=== PATIENT | female | born 1980 | race Caucasian/White ===

== ENCOUNTER 2017-08-27 00:25 | Inpatient (IN) | payer OTHER ==
[~2017-08-27] VITALS: Ht 167.6 cm; Wt 93.6 kg
[~2017-08-27 00:25] MED LIST: PRENTAB26 PO
[2017-08-30] MEDS ORDERED: LACTATED RINGER'S 1000ML 1,000 ML IV SCH (07:36)
[2017-08-30] MEDS ORDERED: LACTATED RINGER'S 1000ML 1,000 ML IV PRN (07:36)
[2017-08-30 07:55] LABS: HEMATOCRIT 33.1 % (37-47); MEAN CELL VOLUME 93.2 fL (80-100); MEAN CORPUSCULAR HEMOGLOBIN 32.7 pg (25-34); MEAN PLATELET VOLUME 9.9 fL (7.4-10.4); PLATELET COUNT 128 K/uL (130-400); RED BLOOD COUNT 3.55 M/uL (4.2-5.4)
[2017-08-30] MEDS ORDERED: PENICILLIN G POTASSIUM IV 6 MU in DEXTROSE 5% 250ML 250 ML IV SCH (08:00)
[2017-08-30] MEDS ORDERED: MISOPROSTOL 25 MCG TAB PV ONE (08:00)
[2017-08-30 08:53] VITALS: Ht 167.6 cm; Wt 93.6 kg
[2017-08-30] MEDS ORDERED: LACTATED RINGER'S 1000ML 500 ML IV PRN ×2 (12:48→18:01)
[2017-08-30] MEDS: PENICILLIN G POTASSIUM IV 3 MU in DEXTROSE 5% 100ML 100 ML IV PRN ×2 (12:50→18:03)
[2017-08-30] MEDS ORDERED: OXYTOCIN 30 UNITS/500ML NSS IV PRN ×2 (13:00→21:15)
[2017-08-30] MEDS ORDERED: FENTANYL 2MCG/ML ROPIV 1.25MG/ML 100ML BAG EPI ONE (17:18)
[2017-08-30] MEDS ORDERED: BUPIVACAINE 0.25% 30 ML VIAL ONE (17:18)
[2017-08-30] MEDS ORDERED: EpHEDrine SULFATE INJ 50 MG/ML AMP ONE (17:18)
[2017-08-30] MEDS ORDERED: FENTANYL CITRATE INJ 50 MCG/1 ML 2 ML VIAL ONE (17:19)
[2017-08-30] MEDS ORDERED: NALOXONE HCL INJ 0.4 MG/1 ML VIAL/CARP IV PRN (18:15)
[2017-08-30] MEDS ORDERED: EpHEDrine SULFATE INJ 50 MG/ML AMP IV PRN (18:15)
[2017-08-30] MEDS ORDERED: FENTANYL 2MCG/ML ROPIV 1.25MG/ML 100ML BAG EPI PRN (18:15)
[2017-08-30] MEDS ORDERED: METHYLERGONOVINE MALEATE 0.2 MG/ML AMP ONE (21:01)
[2017-08-30] MEDS ORDERED: LANOLIN OINT EXT PRN ×2 (21:15)
[2017-08-30] MEDS ORDERED: DIPHTHERIA/TETANUS/PERTUSSIS 0.5 ML SYR/VIAL IM. ONE (21:15)
[2017-08-30] MEDS ORDERED: METHYLERGONOVINE MALEATE 0.2 MG/ML AMP IM ONE (21:15)
[2017-08-30] MEDS ORDERED: ACETAMINOPHEN/CODEINE 300/30MG TAB PO PRN ×2 (21:15)
[2017-08-30] MEDS ORDERED: HYDROCORTISONE ACETATE 25 MG SUPP PR PRN (21:15)
[2017-08-30] MEDS ORDERED: SUPERCREAM 0.870 % 15GM JAR EXT PRN (21:15)
[2017-08-30] MEDS ORDERED: ACETAMINOPHEN 325 MG TAB PO PRN (21:15)
[2017-08-30] MEDS ORDERED: BENZOCAINE 20% AER SPR 82.5 GM CAN EXT PRN (21:15)
[2017-08-30] MEDS ORDERED: OXYCODONE/ACETAMINOPHEN 5-325 TAB PO PRN (21:15)
--- NOTE | 2017-08-30 22:42 | DELIVERY SUMMARY ---
DATE OF OPERATION: 08/30/2017 TIME OF DELIVERY: 20:56 DELIVERY OF PLACENTA: 20:59 DELIVERY NOTE: The patient is a 36-year-old 3, para 2 at 40 weeks and 3 days gestation who was admitted to labor and delivery on the morning of August 30, 2017, and was scheduled for induction of labor secondary to postdates. On arrival, she was found to be 1 cm, 50% effaced and -3 station. She was given 1 dose of Cytotec 25 mcg intravaginally. She progressed and was started on Pitocin per protocol. She received an epidural for anesthesia. Artificial rupture of membranes was performed at 17:11 with clear amniotic fluid noted. She reached complete dilation at 20:48 with urge to push. The patient pushed to delivery at 20:56. She delivered a viable male in the right occiput anterior position to an intact perineum. The baby was delivered and placed on the patient's abdomen. Cord was clamped x2 and cut. Apgars were 8 at 1 minute and 8 at 5 minutes. Please see nursing notes for further baby assessment. Cord blood was then obtained. Intact placenta with 3-vessel cord was delivered at 20:59. Oxytocin infusion was then begun. The lower uterine segment and vagina were cleared of any blood clots and debris. Exploration of the perineum noted a first-degree vaginal laceration which was repaired with 3-0 Vicryl suture in continuous running fashion. Excellent hemostasis was noted. No other lacerations were seen. All sponge, instrument and needle counts were found to be correct x2. Estimated blood loss was 300 mL. Both patient and baby tolerated the delivery well and were in recovery with stable vital signs. I attest to the content of the Intraoperative Record and any orders documented therein. Any exception s are noted below.
--- NOTE | 2017-08-30 23:03 | Anesthesia Procedure Note ---
Anesthesia Epidural Removal Nt Date & Time Aug 30, 2017 at 23:03 Notes Mental Status: alert / awake / arousable, participated in evaluation Nausea / Vomiting: adequately controlled Pain: adequately controlled Airway Patency, RR, SpO2: stable & adequate BP & HR: stable & adequate Hydration State: stable & adequate Neuraxial Anesthesia: was administered Anesthetic Complications: no major complications apparent, pt satisfied with anesthetic care Epidural: removed without complications, with tip intact
[2017-08-31] MEDS: IBUPROFEN 600 MG TAB PO PRN ×5 (03:59→19:52)
[2017-08-31 06:10] VITALS: BP 134/78
[2017-08-31 06:38] LABS: HEMATOCRIT 34.3 % (37-47)
[2017-08-31] MEDS: DOCUSATE SODIUM 100 MG CAP PO SCH ×2 (08:09→19:52)
[2017-08-31] MEDS: FERROUS SULFATE 325 MG TAB PO SCH (08:09)
[2017-08-31] MEDS: PRENATAL VITAMIN TAB PO SCH (08:09)
--- NOTE | 2017-08-31 08:14 | OB/GYN Progress Note ---
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 Subjective conversation w/ patient, physical exam Ambulation: ambulating normally Voiding: no incontinence Passing Gas: Yes Diet Tolerance: Regular Diet Lochia: Small Feeding Type: Breast Feeding Objective Vital Signs Date Time Temp Pulse Resp B/P (MAP) Pulse Ox O2 Delivery O2 Flow Rate FiO2 08/31/17 06:10 134/78 08/31/17 00:30 Room Air Physical Exam General Appearance: WELL-APPEARING, NO APPARENT DISTRESS Abdomen: non tender, soft, no organomegaly Fundus: Firm Extremities: non-tender, normal inspection, no pedal edema, no calf tenderness Laboratory Results Last 24 Hours Test 08/31/17 06:18 Hemoglobin 12.0 g/dL Hematocrit 34.3 % Assessment and Plan Post- Day Number: 1 Continue Routine Care: tent d/c in AM
[2017-08-31 08:42] VITALS: O2SAT 98
[2017-08-31 08:46] VITALS: BP 129/83; PULSE 67; TEMP 36.6
[2017-08-31 12:17] VITALS: BP 139/75; PULSE 69; TEMP 36.8
[2017-08-31 15:00] VITALS: BP 118/73; PULSE 73; TEMP 36.6
[2017-08-31 19:30] VITALS: BP 117/78; PULSE 60; TEMP 36.6
[2017-08-31] MEDS ORDERED: BISACODYL 5 MG TABEC PO SCH (20:00)
[2017-09-01 00:01] VITALS: BP 128/83; PULSE 58; TEMP 36.4
[2017-09-01 06:39] LABS: HEMATOCRIT 35.4 % (37-47); MEAN CELL VOLUME 94.1 fL (80-100); MEAN CORPUSCULAR HEMOGLOBIN 32.2 pg (25-34); MEAN CORPUSCULAR HGB CONC 34.2 g/dl (32-36); MEAN PLATELET VOLUME 10.2 fL (7.4-10.4); PLATELET COUNT 171 K/uL (130-400); RED BLOOD COUNT 3.76 M/uL (4.2-5.4); WHITE BLOOD COUNT 9.14 K/uL (4.8-10.8)
[2017-09-01] MEDS ORDERED: BISACODYL 10 MG SUPP PR PRN (07:00)
[2017-09-01 08:07] VITALS: BP 129/82; PULSE 73; TEMP 36.4
[2017-09-01 08:11] VITALS: O2SAT 98
[2017-09-01] MEDS: PRENATAL VITAMIN TAB PO SCH (08:21)
[2017-09-01] MEDS: FERROUS SULFATE 325 MG TAB PO SCH (08:21)
[2017-09-01] MEDS: IBUPROFEN 600 MG TAB PO PRN ×2 (08:21→12:06)
[2017-09-01] MEDS: DOCUSATE SODIUM 100 MG CAP PO SCH (08:23)
[2017-09-01] MEDS ORDERED: MTR600X PO (10:13)
--- NOTE | 2017-09-01 10:14 | Discharge Instructions ---
Discharge Instructions Date of Service Sep 01, 2017. Admission Reason for Admission: Induction Discharge Discharge Diagnosis / Problem: Vaginal Delivery Discharge Goals Goal(s): Routine recovery after delivery Medications Continue Dispensed Medications: supercream, dermaplast, tucks, lansinoh Activity Recommendations Activity Limitations: per Instructions/Follow-up section . Instructions / Follow-Up Instructions / Follow-Up ACTIVITY RECOMMENDATIONS: * Gradual return to full activity over the next 2-3 weeks. * No lifting - nothing heavier than baby over the next 2-3 weeks. * Do not engage in vigorous exercise, sexual activity or sports until cleared by your physician. * Do not drive or operate any motorized equipment until cleared by your physician. * You may shower/bathe daily. BREAST CARE: If you are not breast feeding: * Wear a supportive bra 24 hours a day for one to two weeks. * Avoid stimulating your breasts and nipples as much as possible during the first few weeks after delivery. * When taking a shower, have the warm water hit your back, not breasts. * When your breasts feel full, apply ice packs. Usually three to four times a day helps ease the discomfort. * Take a mild pain medication (Tylenol/Motrin) when you are uncomfortable. If breast feeding: * Use breast milk to lubricate nipples. Lansinoh cream may be used for sore nipples. You do not need to remove cream prior to breast feeding. If using a different brand of cream, check the label for directions regarding removal of cream prior to nursing. * Wear a supportive bra. * If having problems with breasts or breast feeding, call a legal consultant or your health care provider. EPISIOTOMY CARE: After delivery, if you have an episiotomy (stitches), the following steps will ease discomfort and aid healing. * For the first 24 hours after delivery, place ice packs next to your episiotomy to help reduce swelling. * After the first 24 hour-period, sitz baths, either portable or in the tub, are suggested. A shower with a shower arm sprayed over the episiotomy may be comforting. * Dennise care should be done after each voiding and bowel movement. Squirt warm water from a plastic bottle over the perineum (region of the body between the anus and urinary opening) and pat dry. * Use Dermoplast to ease discomfort. Shake container. [place] directly over the episiotomy. * Place a Tucks on a clean sanitary pad next to your episiotomy. OVER THE COUNTER MEDICATION: * For discomfort or pain, you may use Acetaminophen (Tylenol), Ibuprofen (Advil ), or Naproxen (Aleve) following the package directions. * For constipation you may use Colace following the package directions. SPECIAL CARE INSTRUCTIONS: When you are discharged from the hospital, it is important for you to follow the instructions listed below: * During the first week at home, you should be able to care for yourself and your baby. In addition, the usual light household activities are encouraged. * Limit your activities to the way you feel. Do not try to clean the house or move furniture. Be sensible. * If you actively engage in sports and have done so up until the time of your delivery, you may resume these activities as soon as you feel able. This may take up to one month or even longer. Use good judgment. * Continue to take your vitamins for at least six weeks after the of your baby. * Your diet need not be limited unless you were on a special diet before your delivery. Breast-feeding mothers need around 2500 calories per day and at least 64-80 ounces of fluid per day (8 to 10 glasses). * You should eat foods from the four major food groups. Crash diets or fad diets are to be avoided. Eating lean meats, fresh fruits and vegetables, low-fat dairy products, high fiber foods and a regular exercise program, will help you get back to your pre- weight without putting your health at risk. * Constipation is sometimes a problem after delivery. Take a mild laxative as needed. If breast feeding, Milk of Magnesia is acceptable to use. You may use a suppository or Fleets enema if no episiotomy. * A daily shower or tub bath is suggested. Be sure to thoroughly and gently dry the perineum. * A bloody vaginal discharge will usually continue until around four weeks post . A small amount of bleeding may continue for as long as six weeks. Vaginal discharge changes from the bright red bleeding after delivery to pink then brownish and finally yellowish-pink before becoming white and disappearing. * Bleeding may increase with activity. Your first period may come in 4-8 weeks. If you are breast feeding, your period may be delayed even longer. * [place] (sex) can begin whenever both you and your partner feel comfortable and do not have any form of genital infection. It is recommended that you wait until after your return appointment and discuss with your physician. If you have questions, please talk to your health care practitioner. A condom should be used to prevent infection and . * Foreplay, gentle intercourse and lubrication is very important the first several times to prevent pain. A water-based lubricant such as K-Y jelly or Astroglide may be used. * Tampons may be used six weeks after delivery. * Douching should be avoided for 6 weeks after delivery. * If you have RH negative blood and your baby is RH positive, you will receive RHOGAM by injection prior to discharge. The nurse will give you a card to keep with you that has the date and place that you received RHOGAM after delivery. * During your care, you had a Rubella screen done to check for the presence of rubella antibodies in your blood. If your test was negative, you will receive a Rubella vaccine prior to discharge. This vaccine may cause a fever, soreness at the injection site and flu-like symptoms. If these symptoms persist, notify your health care practitioner. is not advised for three months after a Rubella vaccine. There is a higher chance of having a baby with defects if conceived within three months of getting the vaccine. * If you were discharged 24 hours from delivery or before 48 hours: Visiting nurses will come to your home 48 hours after discharge to assess you and your baby. The visiting nurse will meet with you while you are in the hospital to arrange a time and get directions to your home. * Verbalizes understanding of car seat law as reviewed with patient nursing. * Car Seat hand-out given and reviewed with patient by nursing. * Shaken baby information reviewed with patient by nursing. Call you doctor if: * Heavy bleeding (saturating several pads an hour) or passing clots the size of your fist. * A fever >101 degrees F (38.3 degrees C) on two occasions four hours apart and/or chills. * Unusual pain in the pelvic or vaginal areas. * "Baby Blues" lasting longer than two weeks. If you have any questions or concerns, call your health care practitioner at . FOLLOW-UP VISIT: * Please call the office at to schedule a 6 week examination. It is important you keep this appointment. * It is important for you to make arrangements for either yearly or twice yearly check-ups thereafter. Current Hospital Diet Patient's current hospital diet: Regular OB Diet Discharge Diet Recommended Diet: Regular OB Diet Pending Studies Studies pending at discharge: no Medical Emergencies . Who to Call and When: Medical Emergencies: If at any time you feel your situation is an emergency, please call 911 immediately. . Non-Emergent Contact Non-Emergency issues call your: Primary Care Provider, Steamer Tender . . "Provider Documentation" section prepared by Gary Farmer. . VTE Core Measure Inpt VTE Proph given/why not?: Treatment not indicated
--- NOTE | 2017-09-01 10:16 | OB/GYN Progress Note ---
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 Subjective conversation w/ patient Ambulation: ambulating normally Voiding: no voiding problems Passing Gas: Yes Diet Tolerance: Regular Diet Lochia: Moderate Feeding Type: Breast Feeding Pain: 01/22 Notes: Doing well, no concerns. Pain well controlled. Tolerating regular diet. Ambulating without difficulty. Would like to go home today. Objective Vital Signs Date Time Temp Pulse Resp B/P (MAP) Pulse Ox O2 Delivery O2 Flow Rate FiO2 09/01/17 08:11 98 Room Air 09/01/17 08:07 36.4 73 18 129/82 09/01/17 07:30 Room Air 09/01/17 00:01 Room Air 09/01/17 00:01 36.4 58 16 128/83 08/31/17 19:30 36.6 60 20 117/78 08/31/17 15:00 36.6 73 20 118/73 08/31/17 15:00 Room Air 08/31/17 12:17 36.8 69 20 139/75 Physical Exam General Appearance: WELL-APPEARING Respiratory/Chest: chest non-tender, lungs clear Cardiovascular: regular rate, rhythm Abdomen: normal bowel sounds, soft Fundus: Firm Extremities: normal range of motion, non-tender, no calf tenderness Laboratory Results Last 24 Hours Test 09/01/17 06:19 White Blood Count 9.14 K/uL Red Blood Count 3.76 M/uL Hemoglobin 12.1 g/dL Hematocrit 35.4 % Mean Corpuscular Volume 94.1 fL Mean Corpuscular Hemoglobin 32.2 pg Mean Corpuscular Hemoglobin Concent 34.2 g/dl RDW Standard Deviation 47.7 fL RDW Coefficient of Variation 14.0 % Platelet Count 171 K/uL Mean Platelet Volume 10.2 fL Assessment and Plan Post- Day Number: 2 Continue Routine Care: -D/C home later today possible if baby is discharged -F/U in 6 weeks.
[2017-09-01 15:25] VITALS: BP 137/79; PULSE 55; TEMP 36.5
[2017-09-01 18:09] VITALS: BP_DIAS 79; PULSE 55; TEMP 36.5
== END 2017-09-01 16:45 | disposition home or self-care (01) | DRG 775 ==
LOC: C.LD 08-30 07:31 → C.OBG 08-31 00:01
PROVIDERS: ADMIT Obstetrics & Gynecology; ATTEND Obstetrics & Gynecology
PROC: 0HQ9XZZ Repair Perineum Skin, External Approach (ICD-10-PCS; principal; 2017-08-30)
PROC: 3E0P7GC Introduction of Other Therapeutic Substance into Female Reproductive, Via Natural or Artificial Opening (ICD-10-PCS; principal; 2017-08-30)
PROC: 10E0XZZ Delivery of Products of Conception, External Approach (ICD-10-PCS; principal; 2017-08-30)
DX: O48.0 Post-term pregnancy (principal); O70.0 First degree perineal laceration during delivery; Z37.0 Single live birth; Z3A.40 40 weeks gestation of pregnancy

== ENCOUNTER 2025-01-23 17:17 | Inpatient (IN) ==
--- NOTE | 2025-01-23 17:31 | Emergency Department Note ---
Impression & Plan Calculus of left ureter, Malignant neoplasm of lower-outer quadrant of right breast of female, estrogen receptor positive, Hydronephrosis with obstructing calculus, Hydroureter, left ED Provider Note CHIEF COMPLAINT: Nausea, vomiting, left flank pain HISTORY OF PRESENTING ILLNESS: This 44-year-old female patient presents to the emergency department for evaluation of nausea, vomiting, and left-sided flank pain. Symptoms started abruptly at 11:30 PM last evening. The patient is concerned that she might have a kidney stone. She rates her discomfort a 6/10. However, she has also been having mild diarrhea. Denies any urinary symptoms. Denies any fevers. Denies chest pain or SOB. Denies hematochezia, melena, hematuria, hemoptysis, or hematemesis. The patient has a history of kidney stones and she states that it feels similar. Her urologist at [facility] was trying to get her past her most recent cancer treatments before doing any intervention for her known kidney stones. No known ill contacts. She is on injections for her breast cancer which cause her not to get her period. She is due for her Zoladex injection tomorrow. She had chemo from April 2024 until Aug 2024. She has been off radiation for 1 month and was due to start again on 01/30/25. The patient is also status post mastectomy. REVIEW OF SYSTEMS: See HPI for pertinent positives and pertinent negatives. ALLERGIES: NKDA MEDICATIONS: See below PAST MEDICAL HISTORY: See below PHYSICAL EXAM: VITALS: Vitals are noted on the nurse's note and reviewed by myself. GENERAL: The patient appears nauseous and did have an episode of vomiting. Non toxic, in no acute distress, non-diaphoretic. SKIN: Capillary refill <2 sec. EYES: PERRLA. EOMI. Conjunctivae without injection, sclerae without icterus. NOSE: Patent without discharge. MOUTH: Mucous membranes moist. Uvula midline. Airway patent. NECK: Supple without nuchal rigidity. HEART: Regular rate and rhythm without murmurs gallops or rubs. LUNGS: Clear to auscultation bilaterally without wheezes, rales or rhonchi. No retractions or accessory muscle use. ABDOMEN: Positive bowel sounds x 4. Normal tympanic percussion. Soft, tender to palpation over the left flank and left side of the abdomen. No masses or hepatosplenomegaly. Jara sign negative. No CVA tenderness. No guarding, rigidity, or rebound tenderness. No focal RLQ tenderness. MUSCULOSKELETAL: No gross musculoskeletal defects. NEURO: Patient was alert and oriented. No focal neurological deficits. DIFFERENTIAL DIAGNOSIS: Differential diagnosis includes hepatitis, pancreatitis, cholecystitis, cholelithiasis, appendicitis, kidney stone, pyelonephritis, UTI, gastritis, gastroenteritis, mesenteric adenitis, obstruction, constipation, hernia, abdominal abscess, perforation, diverticulitis, IBD, ischemic colitis, abdominal aortic aneurysm, , ectopic , ovarian cyst, ovarian torsion, acute salpingitis, or others. ED COURSE AND MEDICAL DECISION MAKING: MEDICATIONS GIVEN: 1 L normal saline solution bolus. Tylenol 1000 mg IV. Toradol 10 mg IV. Zofran 4 mg IV x 2. Flomax 0.4 mg p.o. INTERPRETATION OF LABS: I interpreted the labs with full lab results as below in the lab section of this note. Laboratory results pertinent to the emergent complaint are discussed in the MDM section below. The patient was advised to follow up with their PCP and/or specialist(s) for further outpatient monitoring and management of any abnormal results. INTERPRETATION OF IMAGING: Imaging studies were interpreted by myself and read by radiology as per the imaging section of this note. The patient was advised to follow up with their PCP and/or specialist(s) for further outpatient management of any non-emergent abnormal findings. Chest x-ray negative for acute cardiopulmonary etiology. CT scan of the abdomen pelvis with IV contrast showed a left obstructing renal calculus in the distal ureter which is approximately 5.3 mm x 19 mm and may be more than 1 stone together. There is severe left hydronephrosis, hydroureter, perinephritic stranding, and edematous appearance of the kidney. CHRONIC MEDICAL/SOCIAL CONDITIONS AFFECTING CARE: Breast cancer CONSULTATIONS: Dr. Bryant of urology. On-call hospitalist. MDM SUMMARY: I examined the patient. The patient has a history of known kidney stones, but had been waiting to undergo definitive treatment until after her breast cancer treatment. However, at 11:30 PM last evening she started with worsening left flank pain, nausea, and vomiting. She did have some loose stools today as well. She has been unable to control the nausea and vomiting at home and presented to the ER. She has not had any fevers. An IV lock was placed and labs were drawn. White blood cell count normal at 6.14. Hemoglobin normal at 14.6. Platelet count normal at 195. Glucose 115, but CMP otherwise normal. Lipase normal. Magnesium normal. High-sensitivity troponin normal. Serum hCG negative. Urine appears more consistent with a kidney stone and contamination rather than infection with urine culture pending. Chest x-ray negative for acute cardiopulmonary etiology. CT scan of the abdomen pelvis with IV contrast showed a left obstructing renal calculus in the distal ureter which is approximately 5.3 mm x 19 mm and may be more than 1 stone together. There is severe left hydronephrosis, hydroureter, perinephritic stranding, and edematous appearance of the kidney. I spoke with Dr. Bryant of urology in regards to the CT scan findings and the patient's symptoms. The patient does not feel her nausea and vomiting as well as her pain can be well-controlled at home. Therefore, he recommended admission by the hospitalist for further evaluation and treatment. He is unsure if they will be able to perform an inpatient procedure tomorrow due to their schedule, but will consult on the patient and continue to manage the patient from a urologic standpoint. He does not recommend antibiotics at this time since the patient is afebrile and has no leukocytosis. However, if the patient would develop a fever, she should be treated with antibiotics. I spoke with the on-call hospitalist who agreed to admit the patient for further evaluation and treatment. Please refer to their dictation for further details. The patient was admitted in stable condition. DIAGNOSIS: Left ureteral calculus Severe left hydronephrosis and hydroureter Breast cancer Past Med/Surg History Problem List (Updated 01/23/25 @ 21:39 by Nivia Barnett PA-C) Hydroureter, left (Acute) Hydronephrosis with obstructing calculus (Acute) Calculus of left ureter (Acute) Malignant neoplasm of lower-outer quadrant of right breast of female, estrogen receptor positive (Chronic 02/29/24) Medical History (Updated 01/23/25 @ 21:39 by Nivia Barnett PA-C) PCOS (polycystic ovarian syndrome) Dyslipidemia Melanoma HTN (hypertension) Abnormal Pap smear of cervix Overweight Hydronephrosis Renal calculi Surgical History (Updated 10/19/24 @ 09:15 by Leticia Meade RN) Status post bilateral mastectomy S/P colonoscopy 02/09/18 History of lithotripsy To left kidney - stent placed and has since been removed S/P LASIK surgery Bilateral H/O breast augmentation 2007 Family History (Updated 10/19/24 @ 08:42 by Leticia Meade, RN) Mother Stomach cancer Hypertension Father Myocardial infarction H/O heart artery stent Pacemaker Hx of CABG Hypertension Cancer of kidney Brother No problems noted. Brother Hypertension Son No problems noted. Son No problems noted. Daughter No problems noted. 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 Required: No Beliefs That Will Affect Care: None marital status: Current Living Situation: Family and Significant Other current occupational status: employed How many Children do You have: 3 Feels Safe at Home: Yes Diet: regular caffeine: No (2 cups decaf coffee/day) during the past year weight has: decreased > 10 lbs Assistive Devices: Glasses Allergies Allergies Allergy/AdvReac Type Severity Reaction Status Date / Time No Known Allergies Allergy Verified 01/23/25 18:23 Home Meds Home Medications Medication Instructions Recorded Confirmed acetaminophen 500 mg tablet 500 - 1,000 mg PO DIRECTED PRN 10/19/24 01/23/25 (Tylenol Extra Strength) PAIN/FEVER multivitamin 1 tab PO HS 10/19/24 01/23/25 semaglutide 1 mg/dose (4 mg/3 mL) 1 mg subcut .Q 10 DAYS 10/19/24 01/23/25 subcutaneous pen injector (Ozempic) turmeric root extract 500 mg 500 mg PO HS 10/19/24 01/23/25 capsule anastrozole 1 mg tablet 1 mg PO HS 11/16/24 01/23/25 goserelin 3.6 mg subcutaneous 3.6 mg subcut Q28D 11/16/24 01/23/25 implant (Zoladex) docusate sodium 100 mg capsule 100 mg PO BID PRN Constipation 01/23/25 01/23/25 (Colace) ketorolac 10 mg tablet 10 mg PO DIRECTED PRN Pain 01/23/25 01/23/25 Results & Data (ED) Vital Signs Vital Signs - 24 hr 01/23/25 17:20 01/23/25 18:38 01/23/25 20:00 Temperature 36.1 C L Temperature Source Temporal Artery Scan Pulse Rate 91 H Pulse Rate [Finger] 74 88 Pulse Rhythm [Finger] Regular Pulse Strength [Finger] Normal Respiratory Rate 18 18 20 Respiratory Effort / Characteristics Non-Labored Spontaneous Non-Labored Spontaneous Respiratory Depth Normal Normal Respiratory Pattern Regular Regular Blood Pressure 174/109 H Blood Pressure [Left Arm] 158/94 H 163/100 H Blood Pressure Mean 130 Blood Pressure Mean [Left Arm] 115 121 Blood Pressure Position [Left Arm] Lying Pulse Oximetry 99 99 97 Oxygen Delivery Method Room Air Room Air Sepsis Recent Fever Within 48 Hours No Sepsis New/Unexplained Change in Mental Status No Sepsis Action Taken by Nursing No Action Required 01/23/25 21:28 Temperature Temperature Source Pulse Rate Pulse Rate [Finger] Pulse Rhythm [Finger] Pulse Strength [Finger] Respiratory Rate Respiratory Effort / Characteristics Respiratory Depth Respiratory Pattern Blood Pressure Blood Pressure [Left Arm] Blood Pressure Mean Blood Pressure Mean [Left Arm] Blood Pressure Position [Left Arm] Pulse Oximetry 93 Oxygen Delivery Method Room Air Sepsis Recent Fever Within 48 Hours Sepsis New/Unexplained Change in Mental Status Sepsis Action Taken by Nursing Laboratory Data 01/23/25 17:43 01/23/25 17:43 Lab Results 01/23/25 01/23/25 Range/Units 17:43 17:47 WBC 6.14 (4.8-10.8) K/ul RBC 4.75 (4.20-5.40) M/uL Hgb 14.6 (12.0-16.0) g/dl Hct 40.1 (37.0-47.0) % MCV 84.4 (80.0-100.0) fL MCH 30.7 (25.0-34.0) pg MCHC 36.4 H (32.0-36.0) g/dL RDW Std Deviation 39.0 (36.4-46.3) fL RDW Coeff of Adam 12.7 (11.5-14.5) % Plt Count 195 (130-400) K/uL MPV 9.6 (9.4-12.4) fL Immature Gran % (Auto) 0.3 % Neut % (Auto) 86.6 % Lymph % (Auto) 6.5 % [place] % (Auto) 6.2 % Eos % (Auto) 0.2 % Baso % (Auto) 0.2 % Neut # (Auto) 5.32 (1.40-6.50) K/uL Lymph # (Auto) 0.40 L (1.20-3.40) K/uL [place] # (Auto) 0.38 (0.11-0.59) K/uL Eos # (Auto) 0.01 (0.00-0.50) K/uL Baso # (Auto) 0.01 (0.00-0.20) K/uL Immature Gran # (Auto) 0.02 (0.01-0.20) K/uL Sodium 139 (136-145) mmol/L Potassium 3.5 (3.5-5.1) mmol/L Chloride 100 (98-107) mmol/L Carbon Dioxide 32 (21-32) mmol/L Anion Gap 7 (3-11) BUN 15 (6-23) mg/dl Creatinine 0.86 (0.6-1.2) mg/dl Est Cr Clr Drug Dosing 76.5 ml/min eGFR 84.32 BUN/Creatinine Ratio 17.4 (10-20) Glucose 115 H (70-99(Fasting)) mg/dl Calcium 10.3 (8.6-10.3) mg/dl Magnesium 2.0 (1.7-2.4) mg/dl Total Bilirubin 0.9 (0.2-1.0) mg/dl AST 18 (13-39) U/L ALT 12 (7-52) U/L Alkaline Phosphatase 88 (34-104) U/L Troponin I High Sens 6.0 (0-14) pg/ml Total Protein 7.7 (6.0-8.3) gm/dl Albumin 5.0 (3.4-5.0) gm/dl Globulin 2.7 (2.5-4.0) gm/dl Albumin/Globulin Ratio 1.9 (0.9-2) Lipase 14 (11-82) U/L HCG, Qual Negative (Negative) Urine Color Dark Yellow Urine Appearance Slightly Cloudy (Clear) Urine pH 5.5 (4.5-7.5) Ur Specific [employer] 1.022 (1.000-1.030) Urine Protein 2+ H (Negative) Urine Glucose (UA) Negative (Negative) Urine Ketones 1+ H (Negative) Urine Blood 3+ H (Negative) Urine Nitrite Negative (Negative) Urine Bilirubin Negative (Negative) Urine Urobilinogen Negative (Negative) Ur Leukocyte Esterase Trace H (Negative) Urine WBC (Auto) 11-20 H (0-5) /hpf Urine RBC (Auto) >20 H (0-2) /hpf U Hyaline Cast (Auto) 3-5 H (0-2) /lpf U Epithel Cells (Auto) 0-2 (0-2) /hpf Urine Bacteria (Auto) None Seen (None Seen) Administered Medications Discontinued Medications Sodium Chloride (Nss) 1,000 mls @ 999 mls/hr IV .Q1H1M ONE Stop: 01/23/25 18:38 Last Infusion: 01/23/25 18:45 Dose: Infused Documented By: Admin: 01/23/25 17:44 Dose: 999 mls/hr Documented By: RASHIDA Acetaminophen (Ofirmev) 1,000 mg in 100 mls @ 400 mls/hr IV NOW STA Stop: 01/23/25 17:52 Last Infusion: 01/23/25 17:58 Dose: Infused Documented By: Admin: 01/23/25 17:43 Dose: 400 mls/hr Documented By: RASHIDA Ioversol (Optiray 320 100ml) 90 ml IV ONCE ONE Stop: 01/23/25 19:17 Last Admin: 01/23/25 19:16 Dose: 90 ml Documented By: SUSHIL Ketorolac Tromethamine (Ketorolac Tromethamine 15 Mg/Ml Vial) 10 mg IV NOW ONE Stop: 01/23/25 19:12 Last Admin: 01/23/25 19:25 Dose: 10 mg Documented By: PARIS Ondansetron HCl (Ondansetron Inj 2 Mg/Ml 2 Ml Vial) 4 mg IV NOW STA Stop: 01/23/25 17:39 Last Admin: 01/23/25 17:44 Dose: 4 mg Documented By: RASHIDA Ondansetron HCl (Ondansetron Inj 2 Mg/Ml 2 Ml Vial) 4 mg IV NOW STA Stop: 01/23/25 20:08 Last Admin: 01/23/25 20:20 Dose: 4 mg Documented By: NAW Tamsulosin HCl (Tamsulosin Hcl 0.4 Mg Cap) 0.4 mg PO NOW ONE Stop: 01/23/25 20:07 Last Admin: 01/23/25 20:20 Dose: 0.4 mg Documented By: PARIS Imaging Data Radiologist's Impression: Abdomen/Pelvis CT 01/23/25 17:39 EXAMINATION: Abdomen and pelvis CT with CLINICAL HISTORY: Left flank pain, nausea vomiting diarrhea, evaluate stone, or metastatic disease. PRIORS: None TECHNIQUE: Contiguous axial images were obtained through the abdomen and pelvis with the use of intravenous contrast. Sagittal and coronal reformations are supplied. FINDINGS: A left breast implant is partially identified in the chest wall. lung bases are unremarkable. The left kidney demonstrates an obstructing calculus in the distal ureter, proximal to the ureterovesicular junction, image 65, series 2 and images 57 through 52 on the coronal images. These may represent more than 1 obstructing calculus. In total, the calculus measures 5.3 mm in anteroposterior dimension by 19 mm in cranial caudal dimension. Severe left hydronephrosis and hydroureter is present with moderately edematous appearance of the left kidney and moderate perinephric and periureteral inflammatory change. Additional nonobstructing left and right renal calculi are present. Probable small right renal cyst noted in the [id number]. Appendix is normal. Urinary bladder distends normally. Calcifications noted in the spleen and liver. Liver enhances homogeneously. The gallbladder, pancreas, spleen, stomach, adrenals, aorta and IVC are morphologically unremarkable. A large amount of formed stool present in the colon. No pericolonic inflammatory change or dilated loops of bowel. Uterus and adnexa within normal limits. No free fluid in the abdomen or pelvis. No subdiaphragmatic adenopathy identified. Muscle bulk appears normal. In bone windows, moderate to advanced degenerative change at L5-S1. No acute osseous abnormality. IMPRESSION: Left obstructing renal calculus in the distal ureter with severe left hydronephrosis, hydroureter, perinephric stranding and edematous appearance of the kidney. Urology consultation is suggested. ACT 112: Positive. There are findings on this examination that require communication between the performing entity and the patient following Patient Test Result Information Act ([place] ACT 112) guidelines. Electronically signed by Ramila Addison 01-23-2025 7:45 PM Chest X-Ray 01/23/25 17:39 Clinical History: Flank pain Technique: A frontal view of the chest was obtained Findings: There are no confluent pulmonary infiltrates. The heart size is within normal limits. No pleural effusion or pneumothorax is seen. There is no definite pulmonary nodule. No fracture is noted. There is an apparent left breast implant Impression: No active disease Electronically signed by Devaughn Alvarenga 01-23-2025 6:39 PM Discharge Plan Visit Data Chief Complaint: Vomiting Stated Complaint: N/V,SUSPECTED KIDNEY STONES ED Provider: Maru Shepherd ED Midlevel Provider: Nivia Barnett Discharge Problem: Calculus of left ureter, Malignant neoplasm of lower-outer quadrant of right breast of female, estrogen receptor positive, Hydronephrosis with obstructing calculus, Hydroureter, left Patient Disposition: Admitted As Inpatient Condition: Good Forms Stand Alone Forms: [facility], Important Visit Information Prescriptions Prescriptions: No Action multivitamin Tablet 1 tab PO HS acetaminophen [Tylenol Extra Strength] 500 mg tablet 500 - 1,000 mg PO DIRECTED PRN (Reason: PAIN/FEVER) turmeric root extract 500 mg capsule 500 mg PO HS Ozempic 1 mg/dose (4 mg/3 mL) pen injector 1 mg subcut .Q 10 DAYS anastrozole 1 mg tablet 1 mg PO HS Zoladex 3.6 mg implant 3.6 mg subcut Q28D Rx Instructions: DUE 01/24/25 ketorolac 10 mg tablet 10 mg PO DIRECTED PRN (Reason: Pain) docusate sodium [Colace] 100 mg Capsule 100 mg PO BID PRN (Reason: Constipation) Referrals Referrals: Joo Palencia MD [Outside Practitioners] -
[2025-01-23] MEDS: ACETAMINOPHEN 1,000 MG/100 ML VIAL IV STA (17:43)
[2025-01-23] MEDS: ONDANSETRON INJ 2 MG/ML 2 ML VIAL IV STA ×2 (17:44→20:20)
[2025-01-23] MEDS: SODIUM CHLORIDE 0.9% 1,000 ML IV ONE (17:44)
[2025-01-23 18:04] LABS: Basophils # (auto) 0.01 K/uL (0.00-0.20); Basophils % (auto) 0.2 %; Eosinophils # (auto) 0.01 K/uL (0.00-0.50); Eosinophils % (auto) 0.2 %; Hematocrit (blood only) 40.1 % (37.0-47.0); Hemoglobin 14.6 g/dl (12.0-16.0); Immature Granulocytes # (auto) 0.02 K/uL (0.01-0.20); Immature Granulocytes % (auto) 0.3 %; Lymphocytes % (auto) 6.5 %; Mean Corpuscular Hemoglobin 30.7 pg (25.0-34.0); Mean Corpuscular Hgb Conc 36.4 g/dL (32.0-36.0); Mean Corpuscular Volume 84.4 fL (80.0-100.0); Mean Platelet Volume 9.6 fL (9.4-12.4); Monocytes # (auto) 0.38 K/uL (0.11-0.59); Monocytes % (auto) 6.2 %; Neutrophils # (auto) 5.32 K/uL (1.40-6.50); Neutrophils % (auto) 86.6 %; Platelet Count 195 K/uL (130-400); RDW Coefficient of Variation 12.7 % (11.5-14.5); Red Blood Count 4.75 M/uL (4.20-5.40); White Blood Count 6.14 K/ul (4.8-10.8)
[2025-01-23 18:17] LABS: Bilirubin Urine Negative (Negative); Blood Urine 3+ (Negative); Color Urine Dark Yellow; Glucose Urine UA Negative (Negative); Ketones Urine 1+ (Negative); Leukocyte Esterase Urine Trace (Negative); Nitrite Urine Negative (Negative); Protein Urine 2+ (Negative); Specific Gravity Urine 1.022 (1.000-1.030); Urobilinogen Urine Negative (Negative); pH Urine 5.5 (4.5-7.5)
[2025-01-23 18:19] LABS: Albumin Globulin Ratio 1.9 (0.9-2); BUN Creatinine Ratio 17.4 (10-20); Bilirubin,Total 0.9 mg/dl (0.2-1.0); Calcium 10.3 mg/dl (8.6-10.3); Creatinine Clr Calc Pharmacy 76.5 ml/min; Globulin 2.7 gm/dl (2.5-4.0); Potassium 3.5 mmol/L (3.5-5.1); Total Protein 7.7 gm/dl (6.0-8.3)
[2025-01-23 18:22] LABS: Appearance Urine Slightly Cloudy (Clear)
[2025-01-23 18:28] LABS: Bacteria Urine Automated None Seen (None Seen); Epithelial Cell Urine Auto 0-2 /hpf (0-2); RBC Urine Automated >20 /hpf (0-2)
[2025-01-23 18:34] LABS: Pregnancy Test, Serum Negative (Negative)
--- NOTE | 2025-01-23 18:39 | XRay Report ---
Clinical History: Flank pain Technique: A frontal view of the chest was obtained Findings: There are no confluent pulmonary infiltrates. The heart size is within normal limits. No pleural effusion or pneumothorax is seen. There is no definite pulmonary nodule. No fracture is noted. There is an apparent left breast implant Impression: No active disease Electronically signed by Devaughn Alvarenga 01-23-2025 6:39 PM
[2025-01-23] MEDS: OPTIRAY 320 100ml IV ONE (19:16)
[2025-01-23] MEDS: KETOROLAC TROMETHAMINE 15 MG/ML VIAL IV ONE (19:25)
--- NOTE | 2025-01-23 19:45 | CT Scan Report ---
EXAMINATION: Abdomen and pelvis CT with CLINICAL HISTORY: Left flank pain, nausea vomiting diarrhea, evaluate stone, or metastatic disease. PRIORS: None TECHNIQUE: Contiguous axial images were obtained through the abdomen and pelvis with the use of intravenous contrast. Sagittal and coronal reformations are supplied. FINDINGS: A left breast implant is partially identified in the chest wall. lung bases are unremarkable. The left kidney demonstrates an obstructing calculus in the distal ureter, proximal to the ureterovesicular junction, image 65, series 2 and images 57 through 52 on the coronal images. These may represent more than 1 obstructing calculus. In total, the calculus measures 5.3 mm in anteroposterior dimension by 19 mm in cranial caudal dimension. Severe left hydronephrosis and hydroureter is present with moderately edematous appearance of the left kidney and moderate perinephric and periureteral inflammatory change. Additional nonobstructing left and right renal calculi are present. Probable small right renal cyst noted in the [id number]. Appendix is normal. Urinary bladder distends normally. Calcifications noted in the spleen and liver. Liver enhances homogeneously. The gallbladder, pancreas, spleen, stomach, adrenals, aorta and IVC are morphologically unremarkable. A large amount of formed stool present in the colon. No pericolonic inflammatory change or dilated loops of bowel. Uterus and adnexa within normal limits. No free fluid in the abdomen or pelvis. No subdiaphragmatic adenopathy identified. Muscle bulk appears normal. In bone windows, moderate to advanced degenerative change at L5-S1. No acute osseous abnormality. IMPRESSION: Left obstructing renal calculus in the distal ureter with severe left hydronephrosis, hydroureter, perinephric stranding and edematous appearance of the kidney. Urology consultation is suggested. ACT 112: Positive. There are findings on this examination that require communication between the performing entity and the patient following Patient Test Result Information Act ([place] ACT 112) guidelines. Electronically signed by Ramila Addison 01-23-2025 7:45 PM
[2025-01-23] MEDS: TAMSULOSIN HCL 0.4 MG CAP PO ONE (20:20)
--- NOTE | 2025-01-23 21:34 | History & Physical Report ---
Date of Service January 23, 2025 Assessment & Plan (1) Hydronephrosis with obstructing calculus: Plan: Obstructive uropathy secondary to recurrent urolithiasis No sepsis for now Hypertension, elevated secondary to discomfort, patient not on maintenance medications right breast cancer status post surgery/chemotherapy on anastrozole, patient follows with Jocy DAVIES oncologist Admit to medical [place] Strain urine Urology consult re: obstructive uropathy (ED provider already in touch with Dr. Bryant who recommends n.p.o. status after midnight in anticipation of procedure and holding off on antibiotics unless patient develops fever.) Analgesia, initiate lisinopril if with persistent BP elevation DVT prophylaxis per Lovenox subcu Full code Text document was generated using [employer] voice recognition software. It may contain grammatical or spelling errors. Kindly contact undersigned for clarification of any documentation item in question. History of Present Illness Chief Complaint: Kidney stone Primary Care Provider: Chela Amaya DO History obtained from patient and records. Medical history significant for hypertension, urolithiasis, right breast cancer status post surgery/chemotherapy on anastrozole, mood disorder. 2 days ago, patient noted achy left flank pain complaints going to the groin reminiscent of kidney stone attack. Spontaneous stone passage in the past without need for surgery. No gross hematuria, no fever, no chills. Denies chest pain, SOB. 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 Allergies Allergy/AdvReac Type Severity Reaction Status Date / Time No Known Allergies Allergy Verified 01/23/25 18:23 Home Medications Medication Instructions Recorded Confirmed Type acetaminophen 500 mg tablet 500 - 1,000 mg PO DIRECTED PRN 10/19/24 01/23/25 History (Tylenol Extra Strength) PAIN/FEVER multivitamin 1 tab PO HS 10/19/24 01/23/25 History semaglutide 1 mg/dose (4 mg/3 mL) 1 mg subcut .Q 10 DAYS 10/19/24 01/23/25 History subcutaneous pen injector (Ozempic) turmeric root extract 500 mg 500 mg PO HS 10/19/24 01/23/25 History capsule anastrozole 1 mg tablet 1 mg PO HS 11/16/24 01/23/25 History goserelin 3.6 mg subcutaneous 3.6 mg subcut Q28D 11/16/24 01/23/25 History implant (Zoladex) docusate sodium 100 mg capsule 100 mg PO BID PRN Constipation 01/23/25 01/23/25 History (Colace) ketorolac 10 mg tablet 10 mg PO DIRECTED PRN Pain 01/23/25 01/23/25 History Past Med/Surg History Problem List (Updated 01/23/25 @ 21:39 by Nivia Barnett PA-C) Hydroureter, left (Acute) Hydronephrosis with obstructing calculus (Acute) Calculus of left ureter (Acute) Malignant neoplasm of lower-outer quadrant of right breast of female, estrogen receptor positive (Chronic 02/29/24) Medical History (Updated 01/23/25 @ 21:39 by Nivia Barnett PA-C) PCOS (polycystic ovarian syndrome) Dyslipidemia Melanoma HTN (hypertension) Abnormal Pap smear of cervix Overweight Hydronephrosis Renal calculi Surgical History (Updated 10/19/24 @ 09:15 by Leticia Meade, CAMILO) Status post bilateral mastectomy S/P colonoscopy 02/09/18 History of lithotripsy To left kidney - stent placed and has since been removed S/P LASIK surgery Bilateral H/O breast augmentation 2007 Family History (Updated 10/19/24 @ 08:42 by Leticia Meade, RN) Mother Stomach cancer Hypertension Father Myocardial infarction H/O heart artery stent Pacemaker Hx of CABG Hypertension Cancer of kidney Brother No problems noted. Brother Hypertension Son No problems noted. Son No problems noted. Daughter No problems noted. Family/Other Breast cancer Paternal Aunt x 2 Social History (Updated 10/19/24 @ 08:44 by Leticia Meade, RN) Smoking Status: Never smoker Second Hand Exposure: No; Hx Alcohol Use: No Hx Substance Use: No Preferred Language: Bhutanese Communication Ability: Effective Visual Impairment: No Limitations Hearing Ability: Normal Staff Research Associate Required: No Beliefs That Will Affect Care: None marital status: Current Living Situation: Spouse and Family Current Living Situation Comment: kids current occupational status: employed How many Children do You have: 3 Other Information That Helps Us Care for You: No Feels Safe at Home: Yes Safety Concerns: Feels Safe At This Time Diet: regular caffeine: No (2 cups decaf coffee/day) during the past year weight has: decreased > 10 lbs Assistive Devices: Glasses Review of Systems Review of Systems: As per HPI, all other systems reviewed and negative Physical Exam Physical Exam: GENERAL: Slightly uncomfortable, pleasant, no respiratory distress SKIN: Normal color, warm HEENT: [place] palpebral conjunctivae, no ptosis, dry buccal mucosa NECK : Supple, no tenderness CHEST : CTA, no tenderness HEART : RRR, no obvious murmurs ABDOMEN: Some distention, hypogastric tenderness EXTREMITIES : No LE swelling/tenderness, palpable pulses, no other conspicuous deformities noted NEUROLOGIC : Coherent, no facial asymmetry, no other gross focality Results & Data Results & Data Vital Signs (Past 12 Hours) Vital Signs Temp Pulse Pulse Resp BP BP Pulse Ox 01/23/25 21:28 93 01/23/25 20:00 88 20 163/100 H 97 01/23/25 18:38 74 18 158/94 H 99 01/23/25 17:20 36.1 C L 91 H 18 174/109 H 99 O2 Del Method 01/23/25 21:28 Room Air 01/23/25 20:00 Room Air 01/23/25 18:38 Room Air 01/23/25 17:20 Laboratory Results Laboratory Results WBC 6.14 K/ul (4.8-10.8) 01/23/25 17:43 RBC 4.75 M/uL (4.20-5.40) 01/23/25 17:43 Hgb 14.6 g/dl (12.0-16.0) 01/23/25 17:43 Hct 40.1 % (37.0-47.0) 01/23/25 17:43 MCV 84.4 fL (80.0-100.0) 01/23/25 17:43 MCH 30.7 pg (25.0-34.0) 01/23/25 17:43 MCHC 36.4 g/dL (32.0-36.0) H 01/23/25 17:43 RDW Std Deviation 39.0 fL (36.4-46.3) 01/23/25 17:43 RDW Coeff of Adam 12.7 % (11.5-14.5) 01/23/25 17:43 Plt Count 195 K/uL (130-400) 01/23/25 17:43 MPV 9.6 fL (9.4-12.4) 01/23/25 17:43 Immature Gran % (Auto) 0.3 % 01/23/25 17:43 Neut % (Auto) 86.6 % 01/23/25 17:43 Lymph % (Auto) 6.5 % 01/23/25 17:43 [place] % (Auto) 6.2 % 01/23/25 17:43 Eos % (Auto) 0.2 % 01/23/25 17:43 Baso % (Auto) 0.2 % 01/23/25 17:43 Neut # (Auto) 5.32 K/uL (1.40-6.50) 01/23/25 17:43 Lymph # (Auto) 0.40 K/uL (1.20-3.40) L 01/23/25 17:43 [place] # (Auto) 0.38 K/uL (0.11-0.59) 01/23/25 17:43 Eos # (Auto) 0.01 K/uL (0.00-0.50) 01/23/25 17:43 Baso # (Auto) 0.01 K/uL (0.00-0.20) 01/23/25 17:43 Immature Gran # (Auto) 0.02 K/uL (0.01-0.20) 01/23/25 17:43 Sodium 139 mmol/L (136-145) 01/23/25 17:43 Potassium 3.5 mmol/L (3.5-5.1) 01/23/25 17:43 Chloride 100 mmol/L (98-107) 01/23/25 17:43 Carbon Dioxide 32 mmol/L (21-32) 01/23/25 17:43 Anion Gap 7 (3-11) 01/23/25 17:43 BUN 15 mg/dl (6-23) 01/23/25 17:43 Creatinine 0.86 mg/dl (0.6-1.2) 01/23/25 17:43 Est Cr Clr Drug Dosing 76.5 ml/min 01/23/25 17:43 eGFR 84.32 01/23/25 17:43 BUN/Creatinine Ratio 17.4 (10-20) 01/23/25 17:43 Glucose 115 mg/dl (70-99(Fasting)) H 01/23/25 17:43 Calcium 10.3 mg/dl (8.6-10.3) 01/23/25 17:43 Magnesium 2.0 mg/dl (1.7-2.4) 01/23/25 17:43 Total Bilirubin 0.9 mg/dl (0.2-1.0) 01/23/25 17:43 AST 18 U/L (13-39) 01/23/25 17:43 ALT 12 U/L (7-52) 01/23/25 17:43 Alkaline Phosphatase 88 U/L (34-104) 01/23/25 17:43 Troponin I High Sens 6.0 pg/ml (0-14) 01/23/25 17:43 Total Protein 7.7 gm/dl (6.0-8.3) 01/23/25 17:43 Albumin 5.0 gm/dl (3.4-5.0) 01/23/25 17:43 Globulin 2.7 gm/dl (2.5-4.0) 01/23/25 17:43 Albumin/Globulin Ratio 1.9 (0.9-2) 01/23/25 17:43 Lipase 14 U/L (11-82) 01/23/25 17:43 HCG, Qual Negative (Negative) 01/23/25 17:43 Urine Color Dark Yellow 01/23/25 17:47 Urine Appearance Slightly Cloudy (Clear) 01/23/25 17:47 Urine pH 5.5 (4.5-7.5) 01/23/25 17:47 Ur Specific [place] 1.022 (1.000-1.030) 01/23/25 17:47 Urine Protein 2+ (Negative) H 01/23/25 17:47 Urine Glucose (UA) Negative (Negative) 01/23/25 17:47 Urine Ketones 1+ (Negative) H 01/23/25 17:47 Urine Blood 3+ (Negative) H 01/23/25 17:47 Urine Nitrite Negative (Negative) 01/23/25 17:47 Urine Bilirubin Negative (Negative) 01/23/25 17:47 Urine Urobilinogen Negative (Negative) 01/23/25 17:47 Ur Leukocyte Esterase Trace (Negative) H 01/23/25 17:47 Urine WBC (Auto) 11-20 /hpf (0-5) H 01/23/25 17:47 Urine RBC (Auto) >20 /hpf (0-2) H 01/23/25 17:47 U Hyaline Cast (Auto) 3-5 /lpf (0-2) H 01/23/25 17:47 U Epithel Cells (Auto) 0-2 /hpf (0-2) 01/23/25 17:47 Urine Bacteria (Auto) None Seen (None Seen) 01/23/25 17:47 Impressions Abdomen/Pelvis CT 01/23/25 17:39 EXAMINATION: Abdomen and pelvis CT with CLINICAL HISTORY: Left flank pain, nausea vomiting diarrhea, evaluate stone, or metastatic disease. PRIORS: None TECHNIQUE: Contiguous axial images were obtained through the abdomen and pelvis with the use of intravenous contrast. Sagittal and coronal reformations are supplied. FINDINGS: A left breast implant is partially identified in the chest wall. lung bases are unremarkable. The left kidney demonstrates an obstructing calculus in the distal ureter, proximal to the ureterovesicular junction, image 65, series 2 and images 57 through 52 on the coronal images. These may represent more than 1 obstructing calculus. In total, the calculus measures 5.3 mm in anteroposterior dimension by 19 mm in cranial caudal dimension. Severe left hydronephrosis and hydroureter is present with moderately edematous appearance of the left kidney and moderate perinephric and periureteral inflammatory change. Additional nonobstructing left and right renal calculi are present. Probable small right renal cyst noted in the [id number]. Appendix is normal. Urinary bladder distends normally. Calcifications noted in the spleen and liver. Liver enhances homogeneously. The gallbladder, pancreas, spleen, stomach, adrenals, aorta and IVC are morphologically unremarkable. A large amount of formed stool present in the colon. No pericolonic inflammatory change or dilated loops of bowel. Uterus and adnexa within normal limits. No free fluid in the abdomen or pelvis. No subdiaphragmatic adenopathy identified. Muscle bulk appears normal. In bone windows, moderate to advanced degenerative change at L5-S1. No acute osseous abnormality. IMPRESSION: Left obstructing renal calculus in the distal ureter with severe left hydronephrosis, hydroureter, perinephric stranding and edematous appearance of the kidney. Urology consultation is suggested. ACT 112: Positive. There are findings on this examination that require communication between the performing entity and the patient following Patient Test Result Information Act ([place] ACT 112) guidelines. Electronically signed by Ramila Addison 01-23-2025 7:45 PM Chest X-Ray 01/23/25 17:39 Clinical History: Flank pain Technique: A frontal view of the chest was obtained Findings: There are no confluent pulmonary infiltrates. The heart size is within normal limits. No pleural effusion or pneumothorax is seen. There is no definite pulmonary nodule. No fracture is noted. There is an apparent left breast implant Impression: No active disease Electronically signed by Devaughn Alvarenga 01-23-2025 6:39 PM Diagnostic Findings 1. Moderate left hydroureteronephrosis secondary to an obstructing calculus in the distal left ureter measuring approximately 5-6 mm. An additional left ureteral calculus just proximal to the calculus described above measures approximately 3 mm. 2. Multiple nonobstructing bilateral renal calculi measure up to approximately 13 mm on the left.
[2025-01-23] MEDS ORDERED: oxyCODONE HCL IR 5 MG TAB (IMMEDIATE RELEASE) PO PRN (22:09)
[2025-01-23] MEDS ORDERED: PROMETHAZINE 6.25 MG/50.25 ML BAG IV PRN (22:09)
[2025-01-23] MEDS ORDERED: MoRPHine SULFATE 4 MG/ML 1 ML CARP\\VIAL IV PRN (22:09)
[2025-01-23] MEDS ORDERED: LORazepam 0.5 MG TAB PO PRN (22:09)
[2025-01-23] MEDS: ANASTROZOLE 1 MG TAB PO SCH (23:08)
[2025-01-23] MEDS: NSS + 20MEQ KCL 20 MEQ/1,000 ML BAG IV ONE (23:09)
[2025-01-23] MEDS ORDERED: traMADol HCL 50 MG TABLET PO PRN (23:22)
--- OUTSIDE RECORDS SUMMARY | 2025-01-24 00:34 | External Medical Summary | Summary of Care ---
Author Name Unknown Organization [facility] Address [address] [place] [address] Phone [phone] Care Team Providers Care Food Service Supervisor Name Role Phone Chela Amaya DO Primary Care Provider [phone] Reason for Visit * Reason Comments Follow Up Encounter Details Date Type Department Care Team (Late st Contact Info) Description 01/16/2025 1:00 PM EST Office Visit Plastic Surgery, [place] [address] [place] [address] Taylor Sanchez PA-C [address] [place] [address] Malignant neoplasm of right breast in female, estrogen receptor positive, unspecified site of breast (HCC)* Allergies No known active allergiesdocumented as of this encounter (statuses as of 01/23/2025) Medications Polyethylene Glycol 3350 17 GM/SCOOP Oral Powder Take 17 g by mouth in the morning. Active PC Unifine Pentips 31G X 6 MM (Insulin Pen Needle) Use with ozempic Pen 100 Each 2 12/02/2023 2:26 PM EST 4 Active Loratadine 10 MG Oral Tablet (Claritin)Indicat ions:Malignant neoplasm of right breast in female, estrogen receptor positive, unspecified site of breast (HCC) Take 1 Tablet by mouth in the morning. 20 Tablet 04/14/2024 10:10 AM EDT 4 Active Vitamin 27-0.8 MG Oral Tablet Take by mouth. Active Turmeric 500 MG Oral Capsule (RA Turmeric) Take 1 Capsule by mouth in the morning. Active Anastrozole 1 MG Oral Tablet (Arimidex)Indicat ions:Malignant neoplasm of right breast in female, estrogen receptor positive, unspecified site of breast (HCC) Take 1 Tablet by mouth in the morning. 90 Tablet 5 10/31/2024 5:27 PM EST 4 Active Metoclopramide HCl 10 MG Oral Tablet (Reglan) Take 1 Tablet by mouth 3 times a day as needed for Nausea. 20 Tablet 1 11/27/2024 3:01 PM EST 5 Active Tamsulosin HCl 0.4 MG Oral Capsule (Flomax) Take 1 Capsule by mouth in the morning. 30 Capsule 1 11/27/2024 3:01 PM EST 5 Active Ozempic (1 MG/DOSE) 4 MG/3ML Subcutaneous Solution Pen-injector (Semaglutide (1 MG/DOSE)) Inject 1 mg under the skin once a week. 3 mL 2 12/29/2024 1:19 PM EST 5 Active Sulfamethoxazole- Trimethoprim 800-160 MG Oral Tablet (Bactrim DS) Take 1 Tablet by mouth in the morning and 1 Tablet before bedtime, until gone. 28 Tablet 1 12/22/2024 8:42 AM EST 5 01/24/20 25 Discontinu ed(Medicat ion List Clean Up) documented as of this encounter (statuses as of 01/23/2025) Active Problems Problem Noted Date Diagnosed Date Calculus of kidney 09/26/2024 Ureteral stone with hydronephrosis 09/26/2024 History of breast cancer 09/18/2024 Encounter for adjustment and management of vascular access device 09/18/2024 Encounter for antineoplastic chemotherapy 2023 Malignant neoplasm of right breast in female, estrogen receptor positive 03/06/2024 HTN, goal below 140/90 11/27/2019 At risk of melanoma due to finding dysplastic ne vus 01/22/2015 Nevus 07/17/2014 Overweight (BMI 25.0-29.9) 02/29/2012 Overview (02/29/2012): bmi= 26.31 02/29/12 BREAST AUGMENTATION 200707/02/2011 LUMP IN LEFT BREAST 07/02/2011 Family hx-breast malignancy 02/24/2011 ABN PAP SMEAR-CERVIX documented as of this encounter (statuses as of 01/23/2025) Resolved Problems Problem Noted Date Diagnosed Date Resolved Date with hydronephrosis 06/07/2017 08/30/2017 Overview (06/07/2017): Right No stone noted on right but distal sone not excluded Urology recommending nephrology at [facility], pt declines appt Tylenol #3 for pain History of PCOS 01/29/2017 08/30/2017 Overview (02/08/2017): Early glucola ordered Supervision of high-risk 01/29/2017 03/06/2024 Overview (08/04/2017): Patient declined flu vaccine. 08/04/2017 Deanne Oneal RN Cough 03/28/2014 01/07/2018 Chronic rhinitis 03/28/2014 01/07/2018 Encounter for supervision of other normal 03/28/2014 01/14/2017 Overview (03/17/2016): ICD-10 update of inactive term ADVANCE DIRECTIVE INFORMATION 11/24/2013 01/07/2018 Overview (11/24/2013): No, Advance Directive brochure offered, patient declined. First trimester screening 11/24/2013 Encounter for supervision of other normal 10/24/2013 06/20/2014 Overview (03/17/2016): ICD-10 update of inactive term AMA (advanced maternal age) multigravida 35+ 3 08/30/2017 Overview (08/26/2017): Problem Action Taken Date entered Entered by Date resolved Current needs or questions Patient denies having any current needs or questions 04/16/2017 Khloe Minor RN 04/16/2017 Problem Action Taken Date entered Entered by Date resolved Current needs or questions Patient denies having any current needs or questions 05/14/2017 Liberty Lamb RN 05/14/17 Problem Action Taken Date entered Entered by Date resolved Current needs or questions Patient denies having any current needs or questions 06/03/2017 Lynda Fisher RN 06/03/17 Problem Action Taken Date entered Entered by Date resolved cramping Hydration discussed 06/30/2017 Khloe Minor RN 06/30/2017 Problem Action Taken Date entered Entered by Date resolved Plans to breast feed Has a breast pump 07/14/2017 Liberty Lamb RN 07/14/17 Problem Action Taken Date entered Entered by Date resolved Current needs or questions Patient denies having any current needs or questions 07/29/2017 Khloe Minor RN 07/29/2017 Problem Action Taken Date entered Entered by Date resolved Current needs or questions Patient denies having any current needs or questions 08/04/2017 Lynda Fisher RN 08/04/17 Problem Action Taken Date entered Entered by Date resolved Current needs or questions Patient denies having any current needs or questions 08/19/2017 Lynda Fisher RN 08/19/17 Problem Action Taken Date entered Entered by Date resolved Current needs or questions Patient denies having any current needs or questions 08/26/2017 Lynda Fisher RN 08/26/17 , normal first 02/21/201310/15 Acute URI 02/21/2013 01/07/2018 Acute sinusitis 02/21/2013 01/07/2018 ADVANCE DIRECTIVE INFORMATION 02/10/2013 02/10/2013 Overview (12/09/2012): No, Advance Directive brochure offered, patient declined. Supervision of other high-risk 02/10/2013 10/24/2013 Overview (02/18/2016): ICD-10 update of inactive term Alcohol use complicating 12/27/2012 10/24/2013 Overview (12/27/2012): Per MFM, echo and anatomy u/s with MFM at 22 weeks , normal first 11/21/2012/07/2013 Overview (12/29/2012): Desires FTS-negative. MSAFP Negative MFM 12/09: Follow up ultrasound with MFM is recommended in 10 weeks for anatomy/echo secondary to ETOH. Chronic sinusitis 10/31/2012 02/10/2013 Shoulder joint pain 05/30/2012 02/11/20 13 Spasm of muscle 05/30/2012 02/10/2013 Female infertility 03/03/2012 3 Overview (12/14/2012): HSG 02/01/12 - bilat tubal patency EMB - benign anov endometrium Insulin/Glu wnl Elevated Free and total testosterone LH =19, FSH = 6 Prob PCOS -early glucola-wnl Nonallergic rhinitis 02/29/2012 013 Malaise and fatigue 11/12/2010 02/11/20 13 Chronic sinusitis 11/12/2010 02/24/2011 Acute URI 11/12/2010 02/10/2013 Cough 11/12/2010 02/10/2013 NONALLERGIC RHINITIS 04/28/2010 012 RECURRENT ACUTE SINUSITIS 04/28/2010 Deviated nasal septum 04/28/20102012 Hypertrophy of nasal turbinates 03/21/2010 02/10/2013 Allergic rhinitis 03/21/2010 04/28/2010 SITUATIONAL STRESS 11/05/2009 3 documented as of this encounter (statuses as of 01/23/2025) Immunizations Name Administration Dates Next Due PPD 07/11/2020,08/02/2009 Seasonal Influenza Vac., MDV , IM, 0.5 mL (Fluzone) 07/25/2012,08/13/2011,08/25/2010, 009 Seasonal Influenza, PF, 6 M & above, IM , (FluLaval or Fluzone) 09/01/2021,10/22/2020 TDAP (age 10 and older)(Boostrix) 05/22/2019 TDAP, Age 7 and older, IM (Adacel) 08/02/2009 documented as of this encounter Social History Tobacco Use Types Packs/Day Years Used Date Smoking Tobacco: Never Smokeless Tobacco: Never Tobacco Cessation:Counseling Given: Not Answered Alcohol Use Standard Drinks/Week Comments Yes 0 (1 standard drink = 0.6 oz pur e alcohol) ocas PHQ-2 Answer Date Recorded PHQ Adult Total Score 0 02/24/2024 Hunger Vital Sign Answer Date Recorded Within the past 12 months, y ou worried that your food would run out before you got the money to buy more. Never true 02/21/20 24 Within the past 12 months, t he food you bought just didn't last and you didn't have money to get more. Never true 02/21/2024 Childcare Answer Date Recorded Do you feel overwhelmed with taking care of a child, family member or friend? No 02/21/2024 Does your family need help f inding childcare? (Household - for ages 0-17 years) Not on file 02/21/2024 Clothing Answer Date Recorded Have you been unable to get clothing when it was really needed? No 02/21/2024 Is your family able to get c lothes or diapers when needed? (Household - for ages 0-17 years) Not on file 02/21/2024 Personal Safety Answer Date Recorded Do you feel unsafe or have concerns for your saf ety? No 02/21/2024 Do you have concerns for you r family's safety? (Household - for ages 0-17 years) Not on file 02/21/2024 Utilities Answer Date Recorded Do you have trouble paying y our heating, water, or electric bill? No 02/21/2024 Is your family able to pay t he heat, water, or electric bill? (Household - for ages 0-17 years) Not on file 02/21/2024 Does your family have access to good internet? (Household - for ages 0-17 years) Not on file 02/21/2024 Employment Status Answer Date Recorded Are you unemployed or without regular income? No 02/21/2024 Does the household have a re gular source of income? (Household - for ages 0-17 years) Not on file 02/21/2024 Social Connections Answer Date Recorded How often do you feel lonely or isolated from th ose around you? Never 02/21/2024 Financial Resource Strain Answer Date R ecorded Do you have any trouble payi ng for your medications, or do you think you might in the future? No 02/21/2024 Does your family have troubl e paying for medicine? (Household - for ages 0-17 years) Not on file 02/21/2024 Transportation Needs Answer Date Record ed READ ONLY Do you have troubl e getting a ride to medical visits or work? Never True 02/21/2024 Does your family have a hard time getting a ride to doctors visits? (Household - for ages 0-17 years) Not on file 02/21/2024 Has lack of transportation k ept you from medical appointments, meetings, work, or from getting things needed for daily living? Check all that apply. (Adult - for ages 18 years and over) Not on file 02/21/2024 Do you (or your family) have trouble finding or paying for a ride (transportation)? (Household - for ages 0-17 years) Not on file 02/21/2024 Housing Stability Answer Date Recorded Do you currently live in a s helter or have no steady place to sleep at night? No 02/21/2024 READ ONLY Do you think you a re at risk of becoming homeless? No 02/21/2024 Does your family worry about paying for your home or becoming homeless? (Household - for ages 0-17 years) Not on file 0 02/21/2024 Are you homeless or worried that you might be in the future? (Adult - for ages 18 years and over) Not on file Are you (or your family) kim eless or worried that you might be in the future? (Household - for ages 0-17 years) Not on file Food Insecurity Answer Date Recorded Do you need food for this week? No 02/21/2024 Are you able to get enough f ood for your family? (Household - for ages 0-17 years) Not on file 02/21/2024 Does your family need food t his week? (Household - for ages 0-17 years) Not on file 02/21/2024 Do you always have enough fo od for your family? (Household - for ages 0-17 years) Not on file 02/21/2024 Food Insecurity Answer Date Recorded Within the past 12 months, y ou worried that your food would run out before you got the money to buy more. Never true 02/21/20 24 Within the past 12 months, t he food you bought just didn't last and you didn't have money to get more. Never true 02/21/2024 Do you need food for this week? 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 Pain is minimal. No fever or chills. Pt notes some difficulty cleaning incision. She is seeing radiation oncology at end of week to determine when to resume radiation. Pt previously underwent bilateral skin sparing mastectomies with removal of right sided port a cathand right axillary sentinel lymph node biopsy with injection of lymphazurin blue dye for mapping with Dr. Curran and removal of ruptured silicone implants; Immediate bilateral breast reconstruction with placement of pre-pectoral tissue territory service representative and acellular dermal matrix (ADM), bilateral complete capsulectomies performed on 10/03/24 by Trae Mark MD. She had her right drain removed on 11/22/24 and started radiation on 12/05/24. Pt developed redness and thinning of the scar centrally along with seroma. Cultures positive for Enterobacter and pt has been on Bactrim DS. Cultures on 12/19/24 revealed one colony of cutibacterium acnes. Ultimately territory service representative had to be removed due to thinness scar. Herbicide Sprayer Documentation Patient offered jewel grinder and declined. Exam: There were no vitals filed for this visit. 43 year old female in NAD 500 ml tissue territory service representative filled to 300 ml in the OR with air Left expanded to 250 ml Right breast incision intact. Flaps sealed down with expected contracture of flaps. Radiation changes noted. Nylon sutures removed without difficulty. No open areas. Impression: 3 weeks s/p removal of right breast tissue territory service representative. 3 11/16 mo s/p removal of ruptured silicone implants; Immediate bilateral breast reconstruction with placement of pre-pectoral tissue territory service representative and acellular dermal matrix (ADM), bilateral complete capsulectomies- recurrent seroma noted today and aspirated with thinning of incision Plan: -Wound care-clean BID and thin film of ointment for one more week and then can stop. -Activities tolerated. -Pt going for re-stim for radiation on 01/18/25. Pt is cleared to resume radiation -Discussed multiple options for future reconstruction. It will be a minimum of 6 mo from when radiation is completed. -RTC [address] Mark to re-discuss reconstructive options. -Photos taken. Taylor Sanchez PA-C documented in this encounter Plan of Treatment Upcoming Encounters Date Type Department Care Team (Late st Contact Info) Description 01/24/2025 8:40 AM EDT Laboratory Laboratory [facility] [place] [address] [facility] [place] [phone] [facility] [address] [place] [address] 01/24/2025 9:00 AM EDT Immunization/Injecti on Hematology/Oncology Treatment, [place] [address] [place] [phone] [facility], Chair 1 Hem Onc [address] [place] [address] 01/29/2025 10:30 AM EDT Office Visit Hematology/Oncology [facility] [place] [address] [facility] [place] [phone] Jostin Barnes MD [address] [facility] [place] [address] 02/05/2025 9:00 AM EDT Imaging Radiology [facility] [address] [place] [phone] 02/21/2025 11:45 AM EDT Office Visit Urology, [facility] [address] [place] [address] Jeff Vazquez MD [address] [place] [address] 02/26/2025 9:40 AM EDT Office Visit Family Practice [facility] [address] [place] [address] Chela Amaya DO [address] [place] [address] 03/06/2025 9:00 AM EDT Office Visit Plastic Surgery, [place] [address] [place] [address] Trae Mark MD [address] [place] [address] 08/24/2025 10:00 AM EDT Office Visit Dermatology, [place] [address] [place] [address] Merary Omalley PA-C [address] [place] [address] Health Maintenance Due Date Last Done Comments Albumin/Creatinine Ratio 1996 Hepatitis C Screening 1996 Hepatitis B Vaccine (3 of 3 - 3-dose series) 07/26/1997 05/31/1997, 12/01/1996 Cologuard 2023 Fecal Occult Blood Test 2023 Sigmoidoscopy 2023 COVID-19 Vaccine ( season) 2024 Influenza Vaccine (FLU shot) (#1) 2024 09/01/2021, 10/22/2020, 07/25/2012, Additional history exists Depression Screening 02/23/2025 02/24/2024 GFR 10/03/2025 10/03/2024, 08/16, 09/04/2024, Additional history exists PAP SMEAR-EVERY 3 YRS,AGES 18-100 03/06/2027 03/06/2024, 01/28/2016, 11/21/2012, Additional history exists Diabetes Screening 10/03/2027 10/03/2024, 1 , 09/04/2024, Additional history exists Colonoscopy 02/10/2028 02/09/2018, 02/09/2018 Colorectal Cancer Screening 02/10/2028 Lipid Panel 05/15/2029 05/15/2024, 05/0 11/2022, 10/08/2021, Additional history exists DTap/Tdap Vaccines (4 - Td or Tdap) 05/22/2029 05/22/2019, 08/02/2009, 06/08/1994 HPV (Gardasil) Vaccine Aged Out No lo nger eligible based on patient's age to complete this topic MENINGOCOCCAL (MENACTRA/MENVEO) Aged Out No longer eligible based on patient's age to complete this topic Meningitis B Vaccine (Bexsero/Trumemba) Aged Out No longer eligible based on patient's age to complete this topic Pneumococcal Vaccine: Pediatrics (0 to 5 Years) and At-Risk Patients (6 to 18 Years and 19+ Years) Aged Out No longer eligib le based on patient's age to complete this topic documented as of this encounter Medical Devices Implanted Type Area Blocker And Sewer Device Identifier Shelf Expiration Date Model / Serial / Lot [employer] Dynamics Ax Developer Artoura Plus 500cc - [id number] - [id number] Implanted:Qty: 1 on 10/03/2024 by Trae Mark MD at OR [facility] Right: Breast MENTOR ALBERTO 06/01/2028 [id number] / [id number] / [id number] Implant Cortiva Allograft Dermis 16cm X 20cm - [id number] - [id number] Implanted:Qty: 1 on 10/03/2024 by Trae Mark MD at OR [facility] Right: Breast RTI [employer]GICAL 01/31/2026 [id number] / [id number] / [id number] [employer] Ax Developer Artoura Plus 500cc - [id number] - [id number] Implanted:Qty: 1 on 10/03/2024 by Trae Mark MD at OR [facility] Left: Breast MENTOR ALBERTO 07/23/2028 [id number] / [id number] / [id number] Implant Cortiva Allograft Dermis 16cm X 20cm - [id number] - [id number] Implanted:Qty: 1 on 10/03/2024 by Trae Mark MD at OR [facility] Left: Breast RTI SURGICAL 12/07/2025 [id number] / [id number] / [id number] documented as of this encounter Visit Diagnoses Diagnosis Malignant neoplasm of right breast in female, estrogen receptor positive, unspecified site of breast (HCC)- Primary documented in this encounter Advance Directives * Full Code (Latest Code Status on File) Date Activated Date Inactivated Comments 10/03/2024 2:54 PM 10/03/2024 10:31 PM This orde r reflects the patients wishes and were consensually agreed upon. Question Answer Comments Discussion of Advance Direct wesly occurred with: Not Discussed due to patient's condition * Full Code Date Activated Date Inactivated Comments 10/03/2024 6:39 AM 10/03/2024 2:54 PM This order reflects the patients wishes and were consensually agreed upon. Question Answer Comments Discussion of Advance Directives occurred with: Patient * Full Code Date Activated Date Inactivated Comments 09/27/2024 11:18 AM 09/27/2024 4:37 PM This orde r reflects the patients wishes and were consensually agreed upon. Question Answer Comments Discussion of Advance Directives occurred with: Patient * Full Code Date Activated Date Inactivated Comments 09/27/2024 8:31 AM 09/27/2024 11:18 AM This orde r reflects the patients wishes and were consensually agreed upon. Question Answer Comments Discussion of Advance Directives occurred with: Patient Care Teams Food Service Supervisor Relationship Specialty Start Date End Date Chela Amaya DO [address] [place] [address] PCP - General Family Medicine 03/15/23 documented as of this encounter
--- OUTSIDE RECORDS SUMMARY | 2025-01-24 00:35 | External Medical Summary | Summary of Care ---
Author Name Unknown Organization [facility] Address [address] [place] [address] Phone [phone] Care Team Providers Care Airport Maintenance Laborer Name Role Phone Chela Amaya DO Primary Care Provider [phone] Reason for Visit * Reason Comments Medication Administration Zoladex 3.6mg * Episode Based Medications (Routine) - Authorized Specialty Diagnoses / Procedures Referred By Contac t Referred To Contact Diagnoses Malignant neoplasm of right breast in female, estrogen receptor positive, unspecified site of breast (HCC) Procedures SC GOSERELIN ACETATE IMPLANT Jostin Barnes MD [address] [place] [address] [place] [address] Phone: tel: fax: Hematology/Oncology Treatment, [address] [address] Phone: tel: fax: Referral ID Status Reason Start Date Expiration Date V isits Requested Visits Authorized [id number] Authorized 10/30/2024 11/14/2099 [id number] Encounter Details Date Type Department Care Team (Late st Contact Info) Description 12/27/2024 9:00 AM EST Immunization/I njection Hematology/Oncology Treatment, [address] [address] Mily, Chair 6 Hem On[address] [place] [address] Malignant neoplasm of right breast in female, estrogen receptor positive, unspecified site of breast (HCC)* Allergies No known active allergiesdocumented as of this encounter (statuses as of 12/27/2024) Medications Polyethylene Glycol 3350 17 GM/SCOOP Oral [...] skin once a week. 3 mL 2 11/28/2024 11:57 AM EST 5 Active Sulfamethoxazole- Trimethoprim 800-160 MG Oral Tablet (Bactrim DS) Take 1 Tablet by mouth in the morning and 1 Tablet before bedtime, until gone. 28 Tablet 1 12/22/2024 8:42 AM EST 5 Active documented as of this encounter (statuses as of 12/27/2024) Active Problems Problem Noted Date Diagnosed Date [...] as of this encounter (statuses as of 12/27/2024) Resolved Problems Problem Noted Date Diagnosed Date Resolved Date with hydronephrosis 06/07/2017 08/30/2017 Overview (06/07/2017): Right No stone noted on right but distal sone not excluded Urology recommending [place]rology at [facility], pt declines appt Tylenol #3 for pain [...] Lynda Fisher RN 08/26/17 , normal first 02/21/2013 12/ Acute URI 02/21/2013 01/07/2018 Acute sinusitis 02/21/2013 01/07/2018 ADVANCE DIRECTIVE INFORMATION 02/10/2013 02/10/2013 Overview (12/09/2012): No, Advance Directive brochure offered, patient declined. Supervision of other high-risk 02/10/2013 10/24/2013 Overview (02/18/2016): ICD-10 update of inactive term Alcohol use complicating 12/27/2012 10/24/2013 Overview (12/27/2012): Per MFM, echo and anatomy u/s with MFM at 22 weeks , normal first 11/21/201201/14 Overview (12/29/2012): Desires FTS-negative. 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 Patient tolerated injection and will return in 4 weeks. documented in this encounter Plan of Treatment Upcoming Encounters Date Type Department Care Team (Late st Contact Info) Description 01/03/2025 11:30 AM EST Office Visit Plastic Surgery, [place] [address] [facility] [place] [address] Taylor Sanchez PA-C [address] [facility] [place] [address] 01/16/2025 1:00 PM EST Office Visit General Surgery, [facility] [address] [place] [address] Tara Curran MD [address] [place] [address] 01/24/2025 8:40 AM EDT Laboratory Laboratory [facility] [address] [place] [phone] Mily, Lab [facility] [address] [facility] [place] [address] 01/24/2025 9:00 AM EDT Immunization/Injecti on Hematology/Oncology Treatment, [place] [address] [place], [place] [phone] Mily, Chair 6 Hem Onc [facility] 200 [facility] [place] [place] [address] 01/29/2025 10:30 AM EDT Office Visit Hematology/Oncology [facility] [address] [place] [phone] Jostin Barnes MD [address] [place] [address] 02/05/2025 9:00 AM EDT Imaging Radiology [facility] [address] [place] [phone] 02/21/2025 11:45 AM EDT Office Visit [facility], [facility] [place] [address] Jeff Vazquez MD 27 [place] [address] 02/26/2025 9:40 AM EDT Office Visit Family Practice [facility] [address] [place] [address] Chela Amaya, [address] [place] [address] 08/24/2025 10:00 AM EDT Office Visit Dermatology, [place]ena[place] Montaño [address] [place] [address] Merary Omalley PA-C 27 [place] [address] Health Maintenance Due Date Last Done Comments [...] this encounter Medical Devices Implanted Type Area [employer] Caretaker Device Identifier Shelf Expiration Date Model / Serial / Lot Broach Setter Artoura Plus 500cc - [id number] - [id number] Implanted:Qty: 1 on 10/03/2024 by Trae Mark MD at OR [facility] Right: Breast MENTOR ALBERTO 06/01/2028 [id number] / [id number] / [id number] Implant Cortiva Allograft Dermis 16cm X 20cm - [id number] - [id number] Implanted:Qty: 1 on 10/03/2024 by Trae Mark MD at OR [facility] Right: Breast RTI SURGICAL 01/31/2026 [id number] / [id number] / [id number] Broach Setter Artoura Plus 500cc - [id number] - [id number] Implanted:Qty: 1 on 10/03/2024 by Trae Mark MD at OR [facility] Left: Breast MENTOR ALBERTO 07/23/2028 [id number] / [id number] / [id number] Implant Cortiva Allograft Dermis 16cm X 20cm - [id number] - [id number] Implanted:Qty: 1 on 10/03/2024 by Trae Mark MD at OR [facility] Left: Breast RTI SURGICAL 12/07/2025 [id number] / [id number] / [id number] documented as of this encounter Visit Diagnoses Diagnosis Malignant neoplasm of right breast in female, estrogen receptor positive, unspecified site of breast (HCC)- Primary documented in this encounter Administered Medications Active Administered Medications - up to 3 most recent administrations Medication Order MAR Action Action Date Dose Rate Site diphenhydrAMINE (Benadryl) inj 50 mg 50 mg, IV Push, ONCE PRN Other, Hypersensitivity Reaction, Starting on Wed12/27/24 at 0900, Until Wed12/28/24 at 0859, For 24 hoursIndications:Malignant neoplasm of right breast in female, estrogen receptor positive, unspecified site of breast (HCC) EPINEPHrine 1 MG/ML inj 0.3 mg 0.3 mg, Intramuscular, ONCE PRN Other, Hypersensitivity Reaction or Anaphylaxis, Starting on Wed12/27/24 at 0900, Until [place] 12/28/24 at 0859, For 24 hoursIndications:Malignant neoplasm of right breast in female, estrogen receptor positive, unspecified site of breast (HCC) Hydrocortisone Sod Suc (PF) (Solu-Cortef) inj 100 mg 100 mg, IV Push, ONCE PRN Other, Hypersensitivity Reaction, Starting on Wed12/27/24 at 0900, Until [place] 12/28/24 at 0859, For 24 hoursIndications:Malignant neoplasm of right breast in female, estrogen receptor positive, unspecified site of breast (HCC) oxygen GAS Inhalation, OXYGEN, First dose on Wed12/27/24 at 0945, Until Discontinued, Device/Managed by: Low Flow Device, Goal SPO2 (%): 91-95, Starting Device: Nasal Cannula, Initial Flow Rate (LPM): 2, Lowest Support: Nasal Cannula: Flow 0-6 LPM. Titrate up/down by 1 LPM., Higher Support: Non-Rebreather (NRB) Mask: Minimum of 10 LPM. Titrate to maintain bag inflation., Titration Interval: Q2 minutes and as needed., Notify Provider: For sudden DECREASE in resting SPO2 to less than 85% and when escalating delivery device., Wean patient off Oxygen when the oxygen saturation is greater than or equal to 93%Indications:Malignant neoplasm of right breast in female, estrogen receptor positive, unspecified site of breast (HCC) Inactive Administered Medications - up to 3 most recent administrations Medication Order MAR Action Action Date Dose Rate Site Goserelin Acetate (Zoladex) inj 3.6 mg 3.6 mg, Subcutaneous, ONCE, On Wed12/27/24 at 1015, For 1 dose, Administer implant by inserting needle at a 30- to 45-degree angle into the anterior abdominal wall below the navel line.Indications:Maligna nt neoplasm of right breast in female, estrogen receptor positive, unspecified site of breast (HCC) Given 12/27/2024 9:04 AM EST 3.6 mg Abdomen Right Upper documented in this encounter Advance Directives * [...] Advance Directives occurred with: Patient Care Teams Airport Maintenance Laborer Relationship Specialty Start Date End Date Chela Amaya DO [address] [place] [address] PCP - General Family Medicine 03/15/23 documented as of this encounter
--- OUTSIDE RECORDS SUMMARY | 2025-01-24 00:35 | External Medical Summary | Summary of Care ---
Author Name Unknown Organization [facility] [address] [place] [address] Phone [phone] Care Team Providers Care Distribution Designer Name Role Phone Chela Amaya DO Primary Care Provider [phone] Encounter Details Date Type Department Care Team (Late st Contact Info) Description 01/21/2025 Orders Only Hematology/Oncology, [facility] [address] [place] [address] Jostin Barnes MD [address] [place] [address] Allergies No known active allergiesdocumented as of this encounter (statuses as of 01/21/2025) Medications Polyethylene Glycol 3350 17 GM/SCOOP Oral [...] as of this encounter (statuses as of 01/21/2025) Active Problems Problem Noted Date Diagnosed Date [...] as of this encounter (statuses as of 01/21/2025) Resolved Problems Problem Noted Date Diagnosed Date Resolved Date with hydronephrosis 06/07/2017 08/30/2017 Overview (06/07/2017): Right No stone noted on right but distal sone not excluded Urology recommending nephrology at [facility], pt declines appt Tylenol #3 for pain [...] MFM at 22 weeks , normal first 11/21/2012 0307/2013 Overview (12/29/2012): Desires FTS-negative. MSAFP Negative MFM [...] as of this encounter (statuses as of 01/21/2025) Immunizations Name Administration Dates Next Due PPD [...] No 02/21/2024 Does the household have a [facility] source of income? 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 [address] [place] [phone] Mily Lab [facility] [address] [place] [address] 01/24/2025 9:00 AM EDT Immunization/Injecti on Hematology/Oncology Treatment, [place] [address] [place] [phone] Mily, Chair 6 Hem Onc [facility] 200 [facility] [place] [address] 01/29/2025 10:30 AM EDT Office Visit Hematology/Oncology [facility] [address] [place] [phone] Jostin Barnes MD [address] [place] [address] 02/05/2025 9:00 AM EDT Imaging Radiology [facility] 132 [place] [phone] 02/21/2025 11:45 AM EDT Office Visit Urology, [facility] [address] [place] [address] Jeff Vazquez MD 27 [place] [address] 02/26/2025 9:40 AM EDT Office Visit Family Practice [facility] [address] [place] [address] Chela Amaya, DO [address] [place] [address] 03/06/2025 9:00 AM EDT Office Visit Plastic Surgery, [place] [address] [place] [address] Trae Mark MD [address] [place] [address] 08/24/2025 10:00 AM EDT Office Visit Dermatology, [place] Montaño [address] [place] [address] Merary Omalley PA-C [address] [place] [address] Health Maintenance Due Date Last Done Comments [...] this encounter Medical Devices Implanted Type Area Crystal Grower Device Identifier Shelf Expiration Date Model / Serial / Lot Quantitative Strategy Analyst Artoura Plus 500cc - [id number] - [id number] Implanted:Qty: 1 on 10/03/2024 by Trae Mark MD at OR [facility] Right: Breast MENTOR ALBERTO 06/01/2028 [id number] / [id number] / [id number] Implant Cortiva Allograft Dermis 16cm X 20cm - [id number] - [id number] Implanted:Qty: 1 on 10/03/2024 by rTae Mark MD at OR [facility] Right: Breast RTI SURGICAL 01/31/2026 [id number] / [id number] / [id number] Quantitative Strategy Analyst Artoura Plus 500cc - [id number] - [id number] Implanted:Qty: 1 on 10/03/2024 by Trae Mark MD at OR [facility] Left: Breast MENTOR ALBERTO 07/23/2028 [id number] / [id number] / [id number] Implant Cortiva Allograft Dermis 16cm X 20cm - [id number] - [id number] Implanted:Qty: 1 on 10/03/2024 by Trae Mark MD at OR [facility] Left: Breast RTI SURGICAL 12/07/2025 [id number] / [id number] / [id number] documented as of this encounter Advance Directives * Full Code [...] Advance Directives occurred with: Patient Care Teams Distribution Designer Relationship Specialty Start Date End Date Chela Amaya DO [address] [place] [address] PCP - General Family Medicine 03/15/23 documented as of this encounter
--- OUTSIDE RECORDS SUMMARY | 2025-01-24 00:35 | External Medical Summary | Summary of Care ---
Author Name Unknown Organization [facility] [address] [place] [address] Phone [phone] Care Team Providers Care Rn Teacher Name Role Phone Chela Amaya DO Primary Care Provider [phone] Encounter Details Date Type Department Care Team (Late st Contact Info) Description 01/21/2025 Orders Only Hematology/Oncology, [facility] [address] [place] [address] Jostin Barnes MD [address] [place] [address] Allergies No known active allergiesdocumented as of [...] sone not excluded Urology recommending nephrology at [facility], pt declines appt Tylenol #3 for pain [...] No 02/21/2024 Does the household have a [facility] source of income? 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 [address] [place] [address] 01/24/2025 9:00 AM EDT Immunization/Injecti on Hematology/Oncology Treatment, [place] [address] [place] [phone] Mily, Chair [address] [facility] 200 [facility] [place] [address] 01/29/2025 10:30 AM EDT Office Visit Hematology/Oncology [facility] [address] [place] [phone] Jostin Barnes MD [address] [place] [address] 02/05/2025 9:00 AM EDT Imaging Radiology [facility] [address] [place] [phone] 02/21/2025 11:45 AM EDT Office Visit Urology, [facility] [address] [place] [address] Jeff Vazquez MD 27 [place] [address] 02/26/2025 9:40 AM EDT Office Visit Family Practice [facility] 132 [place] [address] Chela Amaya, DO [address] [place] [address] 03/06/2025 9:00 AM EDT Office Visit Plastic Surgery, [place] [address] [place] [address] Trae Mark MD [address] [place] [address] 08/24/2025 10:00 AM EDT Office Visit Dermatology, [place] Montaño [address] [place] [address] Merary Omalley PA-C [address] [place] [address] Health Maintenance Due Date Last Done Comments [...] this encounter Medical Devices Implanted Type Area Pr Specialist Device Identifier Shelf Expiration Date Model / Serial / Lot Firestopper Installer Artoura Plus 500cc - [id number] - [id number] Implanted:Qty: 1 on 10/03/2024 by Trae Mark MD at [place] [facility] Right: Breast MENTOR ALBERTO 06/01/2028 [id number] / [id number] / [id number] Implant Cortiva Allograft Dermis 16cm X 20cm - [id number] - [id number] Implanted:Qty: 1 on 10/03/2024 by Trae Mark MD at OR [facility] Right: Breast RTI SURGICAL 01/31/2026 [id number] / [id number] / [id number] Firestopper Installer Artoura Plus 500cc - [id number] - [id number] Implanted:Qty: 1 on 10/03/2024 by Trae Mark MD at OR [facility] Left: Breast MENTOR ALBERTO 07/23/2028 [id number] / [id number] / [id number] Implant Cortiva Allograft Dermis 16cm X 20cm - [id number] - [id number] Implanted:Qty: 1 on 10/03/2024 by Trae Mark MD at OR [facility] Left: Breast RTI SURGICAL 12/07/2025 [id number] / [id number] / [id number] documented as of this encounter Advance Directives [...] Advance Directives occurred with: Patient Care Teams Rn Teacher Relationship Specialty Start Date End Date Chela Amaya DO 132 [place] [address] PCP - General Family Medicine 03/15/23 documented as of this encounter
--- OUTSIDE RECORDS SUMMARY | 2025-01-24 00:35 | External Medical Summary | Summary of Care ---
Author Name Unknown Organization [facility] Address [address] [place] [address] Phone [phone] Care Team Providers Care Extrusion Supervisor Name Role Phone Chela Amaya DO Primary Care Provider [phone] Reason for Visit * Reason Comments Medication Administration Zoladex 3.6mg * Episode Based Medications (Routine) - Authorized Specialty Diagnoses / Procedures Referred By Contac t Referred To Contact Diagnoses Malignant neoplasm of right breast in female, estrogen receptor positive, unspecified site of breast (HCC) Procedures [place] GOSERELIN ACETATE IMPLANT Jostin Barnes MD [address] [place] [address] [place] [id number] Phone: tel: fax: Hematology/Oncology Treatment, [address] [address] Phone: tel: fax: Referral ID Status Reason Start Date Expiration Date V isits Requested Visits Authorized [id number] Authorized 10/30/2024 11/14/[phone] Encounter Details Date Type Department Care Team (Late st Contact Info) Description 12/27/2024 9:00 AM EST Immunization/I njection Hematology/Oncology Treatment, [address] [phone] Mily, Chair 6 Hem On[address] [place] [id number] Malignant neoplasm of right breast in female, [...] sone not excluded [place]rology [place] [facility], pt declines appt Tylenol #3 for pain [...] 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 Not [...] Description 01/24/2025 8:40 AM EDT Laboratory Laboratory [facility] [place] [address] [place] [address] [facility] [place] [address] 01/24/2025 9:00 AM EDT Immunization/Injecti on Hematology/Oncology Treatment, [place] 200 [facility] [place] [phone] Mily, Chair 1 Hem Onc [facility] [address] [place], [place] [address] 01/29/2025 10:30 AM EDT Office Visit Hematology/Oncology [facility] [address] [place] [phone] Jostin Barnes MD [address] [place] [address] 02/05/2025 9:00 AM EDT Imaging Radiology [facility] [address] [place] [phone] 02/21/2025 11:45 AM EDT Office Visit Urology, [facility] 132 [facility] [place] [address] Jeff Vazquez MD 27 [place] [address] 02/26/2025 9:40 AM EDT Office Visit Family Practice [facility] 132 [facility] [place] [address] Chela Amaya DO [address] [facility] [address] 03/06/2025 9:00 AM EDT Office Visit Plastic Surgery, [place] [address] [place] [address] Trae Mark MD [address] [place] [address] 08/24/2025 10:00 AM EDT Office Visit Dermatology, [place]ena[place] Montaño [address] [place] [address] Merary Omalley PA-C [address] [place] [address] Health Maintenance Due Date Last Done Comments [...] this encounter Medical Devices Implanted Type Area Real Estate Economist Device Identifier Shelf Expiration Date Model / Serial / Lot Racing Car Driver Artoura Plus 500cc - [id number] - [id number] Implanted:Qty: 1 on 10/03/2024 by Trae Mark MD [place] [facility] Right: Breast MENTOR ALBERTO 06/01/2028 [id number] / [id number] / [id number] Implant Cortiva Allograft Dermis 16cm X 20cm - [id number] - [id number] Implanted:Qty: 1 on 10/03/2024 by Trae Mark MD [place] [facility] Right: Breast RTI SURGICAL 01/31/2026 [id number] / [id number] / [id number] Racing Car Driver Artoura Plus 500cc - [id number] - [id number] Implanted:Qty: 1 on 10/03/2024 by Trae Mark MD at [place] [facility] Left: Breast MENTOR ALBERTO 07/23/2028 [id number] / [id number] / [id number] Implant Cortiva Allograft Dermis 16cm X 20cm - [id number] - [id number] Implanted:Qty: 1 on 10/03/2024 by Trae Mark MD [place] [facility] Left[place] Breast RTI SURGICAL 12/07/2025 [id number] / [id number] / [id number] documented as of this encounter Visit Diagnoses Diagnosis Malignant neoplasm of right breast in female, estrogen receptor positive, unspecified site of breast (HCC)- Primary documented in this encounter Administered Medications Inactive Administered Medications - up to 3 [...] Advance Directives occurred with: Patient Care Teams Extrusion Supervisor Relationship Specialty Start Date End Date Chela Amaya DO 132 [place] [address] PCP - General Family Medicine 03/15/23 documented as of this encounter
--- OUTSIDE RECORDS SUMMARY | 2025-01-24 00:35 | External Medical Summary ---
Author Name Unknown Address Unknown Organization K09:[facility] [address] [place] [address] Laboratory Report Ordering Provider Test Date Status ABEL RHODES 12/27/2024 08:45:49 Final Observation Date Value Abnormality Reference (Units ) Status Screen, Urine 12/27/2024 08:45:49 Negative Negative Final Performing Location [facility] [place] [address]
--- OUTSIDE RECORDS SUMMARY | 2025-01-24 00:35 | External Medical Summary | Summary of Care ---
Author Name Unknown Organization [facility] Address [address] [place] [address] Phone [phone] Care Team Providers Care Heel Nailing Machine Operator Name Role Phone Chela Amaya DO Primary Care Provider Reason for Visit * Reason Comments Follow Up B/l mast ectomy. Encounter Details Date Type Department Care Team (Late st Contact Info) Description 01/11/2025 9:00 AM EST Office Visit General Surgery, [facility] [address] [facility] [place] [address] Tara Curran MD [address] [facility] [place] [address] S/P mastectomy, right* Allergies No known active allergiesdocumented as of this encounter (statuses as of 01/11/2025) Medications Polyethylene Glycol 3350 17 GM/SCOOP Oral [...] as of this encounter (statuses as of 01/11/2025) Active Problems Problem Noted Date Diagnosed Date [...] as of this encounter (statuses as of 01/11/2025) Resolved Problems Problem Noted Date Diagnosed Date Resolved Date with hydronephrosis 06/07/2017 08/30/2017 Overview (06/07/2017): Right No stone noted on right but distal sone not excluded Urology recommending nephrology at [facility], pt declines appt Tylenol #3 for pain [...] at 22 weeks , normal first 11/21/2012 03/2 07/2013 Overview (12/29/2012): Desires FTS-negative. 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 Genetic testing negative for mutation. Hoping for complete hysterectomy soon so she can stop the zoladex and just continue on the anastrazole. Started radiation 12/05/24. Had prolonged drain output prior to that. Developed a right sided infection and woodworker helper was removed on 12/26/24. Radiation on hold right now. Has appt next week and then a resimulation (almost 3 weeks done). On zoladex and anastrazole. Getting hot flashes. Range of motion is good, no limitations noted. Final pathology with residual disease - 1 of 3 node with micromet. 10/03/24: A. Breast, left, simple mastectomy: Benign breast tissue with fibrocystic changes, columnar cell change, and intraductal papilloma. Negative for atypia and malignancy. B. Breast, right, simple mastectomy: Residual invasive mammary carcinoma of no special type (ductal), 0.9 cm in greatest dimension. (Seecomment) Ductal carcinoma in-situ (DCIS), high grade. Biopsy clip and biopsy site changes identified. Surgical margins negative: Invasive ductal carcinoma multifocally less than 1 mm to posterior margin. Ductal carcinoma in-situ focally less than 1 mm to posterior margin. Pathologic stage (AJCC 8th addition): ypT1b(m) ypN1mi(sn) See synoptic report. Comment: Sections show a large tumor bed with scattered residual clusters of tumor cells. The largest relatively contiguous area of residual tumor is 0.9 cm in greatest dimension. The corresponding [facility] residual cancer burden score is: 2.477 ; RCB-II. C. Lymph node, right sentinel #1, biopsy: Micrometastatic carcinoma, involving one lymph node (1/). Biopsy clip identified. D. Lymph node, right sentinel #2, count 123, biopsy: One lymph node, negative for metastatic carcinoma (0/1). E. Lymph node, right sentinel #3, count 596, biopsy: One lymph node, negative for metastatic carcinoma (0/1). F. Breast, right, implant capsule, biopsy: Benign fibrous tissue with chronic inflammation and foreign body giant cell reaction, consistent with implant capsule. G. Breast, left, implant capsule, biopsy: Benign fibrous tissue with chronic inflammation and foreign body giant cell reaction, consistent with implant capsule. at 1500 Synoptic Report INVASIVE CARCINOMA OF THE BREAST: Resection 8th Edition - Protocol posted: 05/03/2024INVASIVE CARCINOMA OF THE BREAST: RESECTION - All Specimens SPECIMEN Procedure Total mastectomy Specimen Laterality Right TUMOR Tumor Site Lower inner quadrant Histologic Type Invasive carcinoma of no special type (ductal) Histologic Grade ([place] Histologic Score) Glandular (Acinar) / Tubular Differentiation Score 3 Nuclear Pleomorphism Score 3 Mitotic Rate Score 2 Overall Grade Grade 3 (scores of 8 or 9) Tumor Size Greatest dimension of largest invasive focus (Millimeters): 9 mm Tumor Focality Multiple foci of invasive carcinoma Number of Foci Cannot be determined Sizes of Individual Foci in Millimeters (mm) Scattered small nests of tumor cells within the tumor bed Ductal Carcinoma In Situ (DCIS) Present Positive for extensive intraductal component (EIC) Size (Extent) of DCIS Estimated size (extent) of DCIS is at least (Millimeters): 41 mm Architectural Patterns Solid Nuclear Grade Grade III (high) Necrosis Present, focal (small foci or single cell necrosis) Lobular Carcinoma In Situ (LCIS) Not identified Lymphatic and / or Vascular Invasion Present Dermal Lymphatic and / or Vascular Invasion No skin present Microcalcifications Present in DCIS Present in invasive carcinoma Present in non-neoplastic tissue Treatment Effect in the Breast Probable or definite response to presurgical therapy in the invasivecarcinoma Treatment Effect in the Lymph Nodes Probable or definite response to presurgical therapy in metastatic carcinoma Residual Cancer [place] (RCB) Parameters Greatest Dimension of Primary Tumor Bed Area (Millimeters) 41 mm Second Greatest Dimension of Primary Tumor Bed Area (Millimeters) 29 mm Percentage of Overall Cancer Cellularity 10 % Percentage of Cancer that is In Situ Disease 50 % Number of Positive Lymph Nodes 1 Diameter of Largest [place] Metastasis (Millimeters) 0.7 mm Residual Cancer [place] 2.477 Residual Cancer [place] Class RCB-II MARGINS Margin Status for Invasive Carcinoma All margins negative for invasive carcinoma Distance from Invasive Carcinoma to Closest Margin Less than: 1 mm Closest Margin(s) to Invasive Carcinoma Posterior Distance from Invasive Carcinoma to Anterior Margin 2 mm Margin Status for DCIS All margins negative for DCIS Distance from DCIS to Closest Margin Less than: 1 mm Closest Margin(s) to DCIS Posterior REGIONAL LYMPH NODES Regional Lymph Node Status Tumor present in regional lymph node(s) Number of Lymph Nodes with Macrometastases 0 Number of Lymph Nodes with Micrometastases 1 Number of Lymph Nodes with Isolated Tumor Cells 0 Size of Largest [place]ina Metastatic Deposit 0.7 mm Extranodal Extension Not identified Total Number of Lymph Nodes Examined (sentinel and non-sentinel) 3 Number of [place] Nodes Examined 3 pTNM CLASSIFICATION (AJCC 8th Edition) Reporting of pT, pN, and (when applicable) pM categories is based on information available to the pathologist at the time the report is issued. As per the AJCC (Chapter 1, 8th Ed.) it is the managingphysician's responsibility to establish the final pathologic stage based upon all pertinent information, including but potentially not limited to this pathology report. Modified Classification y pT Category pT1b T Suffix (m) pN Category pN1mi N Suffix (sn) ADDITIONAL FINDINGS Additional Findings Intraductal papilloma, fibrocystic changes SPECIAL STUDIES Estrogen Receptor (ER) Status Positive (greater than 10% of cells demonstrate nuclear positivity) Percentage of Cells with Nuclear Positivity 81-90% Progesterone Receptor (PgR) Status Positive Percentage of Cells with Nuclear Positivity 81-90% HER2 (by immunohistochemistry) Equivocal (Score 2+) HER2 (by in situ hybridization) Negative (not amplified) Testing Performed on Past Medical History: Diagnosis Date Abnormal finding on Pap smear 11/15/2006 colpo WNL, paps WNL since then History of PCOS Kidney stone Malignant neoplasm of right breast in female, estrogen receptor positive (HCC) 03/06/2024 Past Surgical History: Procedure Laterality Date BREAST CAPSULECTOMY, PERIPROSTHETIC Bilateral 10/03/2024 GO-IMPLANT CAPSULECTOMY, BREAST, COMPLETE, INCLUDING REMOVAL OF ALL INTRACAPSULAR CONTENTS performed by Trae Mark MD at [facility] BREAST RECONSTRUCTION W/DIRECTOR MEDICAL SCIENCE Bilateral 10/03/2024 TISSUE DIRECTOR MEDICAL SCIENCE PLACEMENT IN BREAST RECONSTRUCTION performed by Trae Mark MD at [facility] BX LYMPH NODE DEEP AXIL Right 10/03/2024 BIOPSY LYMPH NODE DEEP AXILLARY OPEN performed by Tara Curran MD at [facility] COLONOSCOPY, DIAGNOSTIC (RECTUM) 02/09/2018 normal/COLONOSCOPY FLEXIBLE PROXIMAL DIAGNOSTIC performed by Shaggy Saini MD at [facility] CYSTO/URETERO W/LITHOTRIPSY Left 09/27/2024 CYSTOURETHROSCOPY URETEROSCOPY WITH LITHOTRIPSY AND STENT INSERTION performed by Jeff Vazquez MD at [facility] ENLARGEMENT OF BREAST W/IMPLANT 2008 gel implants, no comps IDENTIFY SENTINEL NODE, RADIOACTIVE TRACER Right 10/03/2024 INJECTION PROCEDURE FOR IDENTIFICATION SENTINEL NODE performed by Tara Curran MD at [facility] IMPLANT, BIOLOGIC, SOFT TISSUE REINFORCE Bilateral 10/03/2024 IMPLANT, BIOLOGIC, SOFT TISSUE REINFORCE performed by Trae Mark MD at OR [facility] INSER TUNN ACC DEV;5 YRS/OLDER Right 04/19/2024 INSERT TUNNELED CENTRAL VENOUS ACCESS WITH SUBQ PORT performed by Rubin Lei MD at [facility] LASIK SURGERY 2007 no comps LASIK/PRK SURGERY 01/31/2015 revision MASTECTOMY, SIMPLE, COMPLETE Bilateral 10/03/2024 MASTECTOMY SIMPLE COMPLETE DUAL SERVICE performed by Tara Curran MD at [facility] US GUIDED BREAST BIOPSY RIGHT Right 02/29/2024 Current Outpatient Medications Medication Sig Dispense Refill Polyethylene Glycol 3350 17 GM/SCOOP Oral Powder Take 17 g by mouth in the morning. PC Unifine Pentips 31G X 6 MM (Insulin Pen Needle) Use with ozempic Pen 100 Each 2 Loratadine 10 MG Oral Tablet (Claritin) Take 1 Tablet by mouth in the morning. 20 Tablet 0 Vitamin 27-0.8 MG Oral Tablet Take by mouth. Turmeric 500 MG Oral Capsule (RA Turmeric) Take 1 Capsule by mouth in the morning. Anastrozole 1 MG Oral Tablet (Arimidex) Take 1 Tablet by mouth in the morning. 90 Tablet 5 Metoclopramide HCl 10 MG Oral Tablet (Reglan) Take 1 Tablet by mouth 3 times a day as needed for Nausea. 20 Tablet 1 Tamsulosin HCl 0.4 MG Oral Capsule (Flomax) Take 1 Capsule by mouth in the morning. 30 Capsule 1 Ozempic (1 MG/DOSE) 4 MG/3ML Subcutaneous Solution Pen-injector (Semaglutide (1 MG/DOSE)) Inject 1 mg under the skin once a week. 3 mL 2 Sulfamethoxazole-Trimethoprim 800-160 MG Oral Tablet (Bactrim DS) Take 1 Tablet by mouth in the morning and 1 Tablet before bedtime, until gone. 28 Tablet 1 No current facility-administered medications for this visit. Allergies as of 01/11/2025 (No Known Allergies) Social History Tobacco Use Smoking status: Never Smokeless tobacco: Never Vaping Use Vaping status: Never Used Substance Use Topics Alcohol use: Yes Alcohol/week: 0.0 standard drinks of alcohol Comment: ocas Drug use: No Comment: denies Family History Problem Relation Name Age of Onset Hypertension Mother Leticia Diabetes Mother Leticia Lymphoma Mother Leticia 62 follicular Kidney cancer Father 66 papillary RCC Heart attack Father 32 Hypertension Brother [place] Skin cancer Grandmother (Paternal) Stroke Grandmother (Paternal) Heart attack Grandmother (Paternal) No Known Problems Daughter No Known Problems Son Cholangiocarcinoma Aunt (Paternal) Kerri 66 Stage IV Breast Cancer Aunt (Paternal) Kerri 66 dx on autopsy Negative Genetic Testing Aunt (Paternal) Coral Breast Cancer Aunt (Paternal) Coral 46 s/p right mastectomy Heart attack Aunt (Paternal) Heart attack Uncle (Paternal) Positive Genetic Testing Cousin (Paternal) limited details PHYSICAL EXAMINATION not currently . Constitutional: alert, healthy Head: normocephalic, atraumatic Eyes: conjunctiva non-injected, sclera white Ears: pinna normal shape and color Neck: supple, no adenopathy Abdomen: soft, non-tender Back: normal curvature Extremities: no edema Neuro: alert, gait normal, motor normal BREAST EXAMINATION: Right Breast: Right breast is surgically absent. Skin: Skin retraction: Yes, excess skin folds present following woodworker helper removal. Peau d'orange: No Telangectasia: No Scar(s) present: Yes, well healed midline Other changes: Yes, hyperpigmentation, thickening Right Lymph Nodes: Arm edema: No Palpable axillary adenopathy: No Palpable supraclavicular adenopathy: No Previous axillary incision: No Left Breast: Left breast is surgically absent. Manager Reporting in place Skin: Skin retraction: No Peau d'orange: No Telangectasia: No Scar(s) present: Yes, well healed midline Other changes: No Left Lymph Nodes: Arm edema: No Palpable axillary adenopathy: No Palpable supraclavicular adenopathy: No Previous axillary incision: No IMPRESSION: Carcinoma RIGHT breast. Stage [id number] Underwent bilateral total mastectomies and right targeted axillary dissection with tissue expanderscomplicated by right side infection during radiation therapy. Now s/p removal of right TE. Still trying to decide what to do for her final reconstruction. Discussed performing self chest wall exam to monitor for recurrence. Range of motion is excellent. On zoladex/ anastrazole. Right breast prosthethic / mastectomy bra ordered. PLAN: F/u PRN. Tara Curran M.D. 01/11/2025 12:37 PM documented in this encounter Nursing Notes * Nickie Johnson MED ASSIST - 01/11/2025 9:04 AM EST Chief Complaint Patient presents with Follow Up B/l mastectomy. Verified patient. documented in this encounter Plan of Treatment Upcoming Encounters Date Type Department Care Team (Late st Contact Info) Description 01/16/2025 1:00 PM EST Office Visit Plastic Surgery, [place] [address] [place] [address] Taylor Sanchez PA-C [address] [facility] [place] [address] 01/24/2025 8:40 AM EDT Laboratory Laboratory [facility] Verna Minor [address] [place] [id number] [place], Lab Scene [address] [facility] [place] [address] 01/24/2025 9:00 AM EDT Immunization/Injecti on Hematology/Oncology Treatment, [place] [address] [place] [phone] Mily, Chair 6 Hem Onc [facility] [address] [facility] [place] [address] 01/29/2025 10:30 AM EDT Office Visit Hematology/Oncology [facility] [place] [address] [place] [phone] Jostin Barnes MD 200 [facility] [place] [address] 02/05/2025 9:00 AM EDT Imaging Radiology [facility] [address] [facility] [place] [phone] 02/21/2025 11:45 AM EDT Office Visit Urology, [facility] [address] [place] [address] Jeff Vazquez MD [address] [place] [address] 02/26/2025 9:40 AM EDT Office Visit Family Practice [facility] [address] [place] [address] Chela Amaya DO [address] [place] [address] 08/24/2025 10:00 AM EDT Office Visit Dermatology, [facility] [address] [place] [address] Merary Omalley PA-C [address] [place] [address] Scheduled Orders Name Type Priority Associated Diagnoses Orde r Schedule BREAST PROSTHESIS;NOS Procedures Routine S/P mastectomy, right Ordered: 01/11/2025 MASTECTOMY BRA Procedures Routine S/P mastectomy, right Ordered: 01/11/2025 Health Maintenance Due Date Last Done Comments [...] this encounter Medical Devices Implanted Type Area Peer Financial Counselor Device Identifier Shelf Expiration Date Model / Serial / Lot Manager Reporting Artoura Plus 500cc - [id number] - [id number] Implanted:Qty: 1 on 10/03/2024 by Trae Mark MD at OR [facility] Right: Breast MENTOR ALBERTO 06/01/2028 [id number] / [id number] / [id number] Implant Cortiva Allograft Dermis 16cm X 20cm - [id number] - [id number] Implanted:Qty: 1 on 10/03/2024 by Trae Mark MD at OR [facility] Right: Breast RTI SURGICAL 01/31/2026 [id number] / [id number] / [id number] Manager Reporting Artoura Plus 500cc - [id number] - [id number] Implanted:Qty: 1 on 10/03/2024 by Trae Mark MD at OR [facility] Left: Breast MENTOR ALBERTO 07/23/2028 [id number] / [id number] / [id number] Implant Cortiva Allograft Dermis 16cm X 20cm - [id number] - [id number] Implanted:Qty: 1 on 10/03/2024 by Trae Mark MD at OR [facility] Left: Breast RTI SURGICAL 12/07/2025 [id number] / [id number] / [id number] documented as of this encounter Visit Diagnoses Diagnosis S/P mastectomy, right- Primary documented in this encounter Advance Directives [...] Advance Directives occurred with: Patient Care Teams Heel Nailing Machine Operator Relationship Specialty Start Date End Date Chela Amaya DO [address] [place] [address] PCP - General Family Medicine 03/15/23 documented as of this encounter
--- OUTSIDE RECORDS SUMMARY | 2025-01-24 00:35 | External Medical Summary | Summary of Care ---
Author Name Unknown Organization [facility] Address [address] [place] [address] Phone [phone] Care Team Providers Care Chart Clerk Name Role Phone Chela Amaya DO Primary Care Provider Reason for Visit * Reason Comments Outpatient Testing Encounter Details Date Type Department Care Team (Late st Contact Info) Description 12/27/2024 8:40 AM EST [facility] [address] [place] [address] [facility] [address] [place] [address] Malignant neoplasm of right breast in female, estrogen receptor positive, unspecified site of breast (HCC) Allergies No known active allergiesdocumented as of [...] sone not excluded Urology recommending nephrology at [place], pt declines appt Tylenol #3 for pain [...] at 22 weeks , normal first 11/21/2012 03/07/2013 Overview (12/29/2012): Desires FTS-negative. MSAFP Negative MFM [...] No 02/21/2024 Does the household have a socorro general hospitallar source of income? 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 file Not on file Not on file documented as of this encounter Plan of Treatment Upcoming Encounters Date Type Department Care Team (Late st Contact Info) Description 01/03/2025 11:30 AM EST Office Visit Plastic Surgery, [place] [address] [place] [address] Taylor Sanchez PA-C [address] [place] [address] 01/16/2025 1:00 PM EST Office Visit General Surgery, [facility] [address] [facility] [place] [address] T[facility] [place] [address] 01/24/2025 8:40 AM EDT Laboratory Laboratory [address] [place] [phone] Mily, Lab Scene[address] [place] [address] 01/24/2025 9:00 AM EDT Immunization/Injecti on Hematology/Oncology Treatment, [place] [address] [place] [phone] Mily, Chair 6 Hem Onc [address] [place] [address] 01/29/2025 10:30 AM EDT Office Visit Hematology/Oncology [facility] [place] [address] [place] [phone] Jostin Barnes MD [address] [place] [address] 02/05/2025 9:00 AM EDT Imaging Radiology [facility] [address] [place] [phone] 02/21/2025 11:45 AM EDT Office Visit Urology, [facility] [address] [place] [address] Jeff Vazquez MD [address] [place] [address] 02/26/2025 9:40 AM EDT Office Visit Family Practice [facility] [address] [place] [address] Chela Amaya DO [address] [place] [address] 08/24/2025 10:00 AM EDT Office Visit Dermatology, [place] Zenaida Hannah [address] [place] [address] Merary Omalley PA-C [address] [place] [address] Health Maintenance Due Date Last Done Comments [...] this encounter Medical Devices Implanted Type Area Skein Yarn Dyer Helper Device Identifier Shelf Expiration Date Model / Serial / Lot Guard Entrance Registrar Artoura Plus 500cc - [id number] - [id number] Implanted:Qty: 1 on 10/03/2024 by Trae Mark MD at OR [place] Right: Breast MENTOR ALBERTO 06/01/2028 [id number] / [id number] / [id number] Implant Cortiva Allograft Dermis 16cm X 20cm - [id number] - [id number] Implanted:Qty: 1 on 10/03/2024 by Trae Mark MD at OR [place] Right: Breast RTI SURGICAL 01/31/2026 [id number] / [id number] / [id number] Guard Entrance Registrar Artoura Plus 500cc - [id number] - [id number] Implanted:Qty: 1 on 10/03/2024 by Trae Mark MD at OR [place] Left: Breast MENTOR ALBERTO 07/23/2028 [id number] / [id number] / [id number] Implant Cortiva Allograft Dermis 16cm X 20cm - [id number] - [id number] Implanted:Qty: 1 on 10/03/2024 by Trae Mark MD at [facility] Left: Breast RTI SURGICAL 12/07/2025 [id number] / [id number] / [id number] documented as of this encounter Procedures Procedure Name Priority Date/Time Associated Diagnosis Comments HCG QUALITATIVE, URINE STAT 12/27/2024 8:45 AM EST Malignant neoplasm of right breast in female, estrogen receptor positive, unspecified site of breast (HCC) documented in this encounter Results * HCG QUALITATIVE, URINE (12/27/2024 8:45 AM EST) HCG Qualitative, Urine Negative Negative 12/27/2024 8:51 AM EST [facility] 56-02 Urine Urine specimen obtained by clean catch procedure / Unknown Non-blood Collection / Unknown 12/27/2024 8:45 AM EST 12/27/2024 8:45 AM EST Jostin Barnes MD LAB URINE ORDERABLES Fin al Result [facility] 56-02 [address] [place] [address] documented in this encounter Visit Diagnoses Diagnosis Malignant neoplasm of right breast in female, estrogen receptor positive, unspecified site of breast (HCC) documented in this encounter Advance Directives * [...] Advance Directives occurred with: Patient Care Teams Chart Clerk Relationship Specialty Start Date End Date Chela Amaya DO [address] [place] [address] PCP - General Family Medicine 03/15/23 documented as of this encounter
--- OUTSIDE RECORDS SUMMARY | 2025-01-24 00:35 | External Medical Summary | Summary of Care ---
Author Name Unknown Organization [facility] Address [address] [place] [address] Phone [phone] Care Team Providers Care Logistics Engineer Name Role Phone Chela Amaya DO Primary Care Provider [phone] Reason for Visit * Reason Comments Follow Up Encounter Details Date Type Department Care Team (Late st Contact Info) Description 01/03/2025 3:30 PM EST Office Visit Plastic Surgery, [place] [address] [place] [address] Taylor Sanchez PA-C [address] [place] [address] Malignant neoplasm of right breast in female, estrogen receptor positive, unspecified site of breast (HCC)* Allergies No known active allergiesdocumented as of this encounter (statuses as of 01/04/2025) Medications Polyethylene Glycol 3350 17 GM/SCOOP Oral [...] as of this encounter (statuses as of 01/04/2025) Active Problems Problem Noted Date Diagnosed Date [...] as of this encounter (statuses as of 01/04/2025) Resolved Problems Problem Noted Date Diagnosed Date Resolved Date with hydronephrosis 06/07/2017 08/30/2017 Overview (06/07/2017): Right No stone noted on right but distal sone not excluded Urology recommending nephrology at [facility], pt declines appt Tylenol [...] any current needs or questions 04/16/2017 Khloe Minor, RN 04/16/2017 Problem Action Taken Date entered [...] as of this encounter (statuses as of 01/04/2025) Immunizations Name Administration Dates Next Due PPD [...] 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 Pain is minimal though she notes firm area along medial chest. Drain has been less than 10 ml/24 hours for several days. She has been applying bacitracin incision as directed. Nofever or chills. Pt is tolerating antibiotics. Pt previously underwent removal of ruptured silicone implants; Immediate bilateral breast reconstruction with placement of pre-pectoral tissue animal care worker and acellular dermal matrix (ADM), bilateral complete capsulectomies performed on 10/03/24 by Trae Mark MD. She had her right drain removed on 11/22/24 and started radiation on 12/05/24. Pt developed redness and thinning of the scar centrally along with seroma. Cultures positive for Enterobacter and pt has been on Bactrim DS. Cultures on 12/19/24 revealed one colony of cutibacterium acnes. 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 Exam: There were no vitals filed for this visit. 43 year old female in NAD 500 ml tissue animal care worker filled to 300 ml in the OR with air Left expanded to 250 ml Right breast incision intact and skin starting to contract with expected firmness. Flaps sealing down. Radiation changes noted. Nylon sutures kept in place. Drain with scant fluid and this was removed without difficulty. Firm area along medial right breast was from drain which resolved after drain was removed. 12/26/24 Cultures: Culture Growth No aerobic or anaerobic growth Stain Description Rare Polymorphonuclear leukocytes No squamous epithelial cells seen No organisms seen Impression: 1 week s/p removal of right breast tissue animal care worker. 3 mo s/p removal of ruptured silicone implants; Immediate bilateral breast reconstruction with placement of pre-pectoral tissue animal care worker and acellular dermal matrix (ADM), bilateral complete capsulectomies- recurrent seroma noted today and aspirated with thinning of incision Plan: - Continue antibiotic ointment to incision and pad area with ABD pads. - Most recent cultures without growth D/C Bactrim. -Restrict activities x 4 weeks. -RTC two weeks for suture removal. -Pt tentatively scheduled for re-stim for radiation on 01/18/25. Would want area healed prior continuing radiation. Pt asking of contralateral animal care worker will get in way of future radiation treatments. Iadvised her to reach out to radiation oncology for this. -Photos taken. Taylor Sanchez PA-C documented in this encounter Plan of Treatment Upcoming Encounters Date Type Department Care Team (Late st Contact Info) Description 01/16/2025 1:00 PM EST Office Visit [facility] [address] T[facility] [place] [address] 01/16/2025 1:00 PM EST Office Visit Plastic Surgery, [place] [address] [place] [address] Taylor Sanchez PA-C [address] [place] [address] 01/24/2025 8:40 AM EDT Laboratory Laboratory [facility] [place] [address] [place] [phone] M[facility] Sc[facility] [address] [place] [address] 01/24/2025 9:00 AM EDT Immunization/Injecti on Hematology/Oncology Treatment, [place] [address] [place] [phone] Mily, Chair 6 Hem Onc [facility] [address] [place] [address] 01/29/2025 10:30 AM EDT Office Visit Hematology/Oncology [facility] [place] [address] [facility] [place] [phone] Jostin Barnes MD [address] [place] [address] 02/05/2025 9:00 AM EDT Imaging Radiology [facility] [address] [place] [phone] 02/21/2025 11:45 AM EDT Office Visit Urology, [facility] [address] [place] [address] Jeff Vazquez MD [address] [place] [address] 02/26/2025 9:40 AM EDT Office Visit Family Practice [facility] [address] [place] [address] Chela Amaya DO [address] [place] [address] 08/24/2025 10:00 AM EDT Office Visit Dermatology, [place] [address] [place] [address] Merary Omalley PA-C [address] [place] [address] Health Maintenance Due Date Last Done Comments [...] this encounter Medical Devices Implanted Type Area Paramedic Supervisor Device Identifier Shelf Expiration Date Model / Serial / Lot Sailboat Captain Artoura Plus 500cc - [id number] - [id number] Implanted:Qty: 1 on 10/03/2024 by Trae Mark MD at [place] [facility] Right: Breast MENTOR ALBERTO 06/01/2028 [id number] / [id number] / [id number] Implant Cortiva Allograft Dermis 16cm X 20cm - [id number] - [id number] Implanted:Qty: 1 on 10/03/2024 by Trae Mark MD at OR [facility] Right: Breast RTI SURGICAL 01/31/2026 [id number] / [id number] / [id number] Sailboat Captain Artoura Plus 500cc - [id number] - [id number] Implanted:Qty: 1 on 10/03/2024 by Trae Mark MD at OR [facility] Left: Breast MENTOR ALBERTO 07/23/2028 [id number] / [id number] / [id number] Implant Cortiva Allograft Dermis 16cm X 20cm - [id number] - [id number] Implanted:Qty: 1 on 10/03/2024 by Trae Mark MD at OR [facility] Left: Breast RTI SURGICAL 12/07/2025 [id number] / [id number] / [id number] documented as of this encounter Visit Diagnoses [...] Advance Directives occurred with: Patient Care Teams Logistics Engineer Relationship Specialty Start Date End Date Chela Amaya DO [address] [place] [address] PCP - General Family Medicine 03/15/23 documented as of this encounter
--- OUTSIDE RECORDS SUMMARY | 2025-01-24 00:36 | External Medical Summary | Summary of Care ---
Author Name Unknown Organization [facility] Address [address] [place] [address] Phone [phone] Care Team Providers Care Nurse Esthetician Name Role Phone Chela Amaya DO Primary Care Provider [phone] Reason for Visit * Reason Comments Follow Up Encounter Details Date Type Department Care Team (Late st Contact Info) Description 12/26/2024 2:00 PM EST Office Visit Plastic Surgery, [place] [address] [place] [address] Taylor Ramos PA-C [address] [place] [address] Malignant neoplasm of right breast in female, estrogen receptor positive, unspecified site of breast (HCC)*; Seroma of breast Allergies No known active allergiesdocumented as of [...] 1 12/22/2024 8:42 AM EST 5 Active Hospital, Clinic, or Other Facility Administered Medication Ordered Dose Route Frequency Start Date End Date Status Lidocaine-EPINEPHrine 1 %-1:276830 inj 90 mgIndications:Malignant neoplasm of right breast in female, estrogen receptor positive, unspecified site of breast (HCC) 90 mg SC ONCE 12/26/2024 12/27/2024 Active ceFAZolin (Ancef) 3 g, Gentamicin 240 mg in sodium chloride IR 0.9 % 3,000 mL irrigationIndications:Fede sanches neoplasm of right breast in female, estrogen receptor positive, unspecified site of breast (HCC) IR ONCE 12/26/2024 12/26/2024 Ended documented as of this encounter (statuses as [...] sone not excluded [place]rology [place] [facility]t Tylenol #3 for [...] 12/27/2024) Immunizations Name Administration Dates Next Due Diptheria/Tetanus Adult (TD) 06/08/1994 Hepatitis B Vaccine 05/31/1997,12/01/1996 MMR - Measles/Mumps/Rubella Vaccine 08/11/1994,0 04/13/1980 OPV - Polio Virus Vaccine (Oral) 984,07/11/1980,07/12/1979, 979,02/28/1979 PPD 07/11/2020,08/02/2009 Seasonal Influenza Vac., MDV , [...] 18 years and over) Not on file 4 Are you (or your family) kim eless [...] 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 on file Not on file documented as of this encounter Last Filed Vital Signs Vital Sign Reading Time Taken Comments Blood Pressure 141/71 12/26/2024 1:51 PM EST Pulse 80 12/26/2024 1:51 PM EST Temperature 35.9 C (96.7 F) 12/26/2024 1:51 PM ES T Respiratory Rate - - Oxygen Saturation - - Inhaled Oxygen Concentration - - Weight 63.5 kg (140 lb) 12/26/2024 1:51 PM EST Height 167.6 cm (5' 6") 12/26/2024 1:51 PM EST Body Mass Index 22.6 12/26/2024 1:51 PM EST documented in this encounter Patient Instructions * Patient Instructions* Taylor Ramos PA-C - 12/26/2024 3:18 PM EST Post-op instructions: You will have drainage tubes for the breast(s). You may NOT shower until 24 hours after all the drainage tubes have been removed. The drainage will need to be measured and emptied approximately 3 times each day or as needed based on the amount of drainage. It is normal for a small amount of drainage to occur around the drainage tube and the drain sponges may be changed daily or as needed. The drainage will gradually decrease over time. . Dressings: Change dressings daily with "burn pads" folded in a square over incision and ABD pads over chest. Apply bacitracin or other antibiotic ointment 1-2 times. It is not uncommon to have small open areas along the incision and consequently some drainage may occur from these open areas. If this occurs, keep the area clean, apply antibiotic ointment to the open area, and cover with a dressing. If you develop a rash after using the antibiotic ointment, stop using it and call for recommendations on wound care. Do NOT apply ice or heat to the chest. Always wear surgical bra for 4 weeks. Take full course of antibiotics. Activity restrictions are recommended for at least 4 weeks following surgery. Avoid strenuous activity (i.e. no vacuuming, jogging, or other sports activities). Do not lift more than 10 lbs. It is helpful to rest with your head elevated. In general, you may drive if you are feeling well enough to drive and are not taking narcotic pain medication. EXPECTATIONS Your breast(s) will be swollen and may be bruised initially. The swelling and bruising will gradually decrease over the first several weeks. In addition, it may take some time for your appetite to return to normal. This is normal after thissurgery, but it is important to drink plenty of fluids. Constipation is also common following surgery. This can be worsened by the pain medications you are taking. If you are not already taking a stool softener you may call for a prescription or try an over the counter stool softener. The scars will appear pink/red and may be raised and bumpy initially. Scars normally flatten and fade with time and we will instruct you on scar massage at your follow-up visit. PRECAUTIONS Call if you experience any of the following: Excessive bleeding, swelling, or redness. Pain that is not controlled by the medication you were prescribed. Color of the skin flap changes significantly or is blue or purple. Fever 101F or greater or chills. Call with any other questions or concerns. CONTACT INFORMATION If you have any questions about the appearance of your surgical site or need to review the information provided on this page, do not hesitate to contact us. Our daytime office Wednesday - Wednesday: [facility] . Evenings/weekends: [facility] and ask for Plastic Surgery. Please callthe clinic or numbers listed before going to Emergency Department unless there is a life-threatening emergency. PAIN MANAGEMENT If you have any questions regarding pain management prior to your first appointment with plastic surgery, please contact us at above phone numbers. documented in this encounter Progress Notes * Taylor Ramos PA-C - 12/26/2024 1:54 PM EST Plastic Surgery Clinic Follow-up Note HPI: Danni Conte is a 43 year old female who returns for follow-up S/P removal of ruptured silicone implants; Immediate bilateral breast reconstruction with placement of pre-pectoral tissue expanderand acellular dermal matrix (ADM), bilateral complete capsulectomies performed on 10/03/24 by Trae Mark MD. She had her right drain removed on 11/22/24 and started radiation on 12/05/24. Pt was seen two weeks ago for increased redness and thinning of the scar centrally. Seroma was drained at that time several times and pt on Bactrim DS for cultures positive for Enterobacter. Fluid was also removed from the mink farmer last week. Last seroma was 8 ml which is decreased from previous but scar continues to thin. Last cultures revealed one colony of cutibacterium acnes. She denies severe pain, fevers, chills. Pt currently undergoing radiation treatments. She feels well today but notesscar continues to thin and now tab along inferior pole is irritated and thinning. 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 Exam: Filed Vitals: 12/26/24 1351 BP: 141/71 Pulse: 80 Temp: 35.9 C (96.7 F) TempSrc: Tympanic Weight: 63.5 kg (140 lb) Height: 1.676 m (5' 6") 43 year old female in NAD 500 ml tissue mink farmer filled to 300 ml in the OR with air Left expanded to 250 ml Right breast with ongoing erythema. Scar medially continues to thin and worse today and breakdown is imminent. Tab along inferor pole palpable and now has thinning and irritation. Pt has fluid wave as well. After discussion with pt and Dr. Shepherd (radiation oncologist) decision made to remove right tissue mink farmer under local anesthesia: PROCEDURE NOTE SERVICE: Plastic Surgery DATE: 12/26/2024 PRE-OP DIAGNOSIS: Removal of right tissue mink farmer s/p breast reconstruction POST-OP DIAGNOSIS: Same. SURGEON: Taylor Ramos PA-C ANESTHESIA: Local OPERATION: Removal of right tissue mink farmer, irrigation and intermediate closure. FINDINGS: Very thin capsule medial scar as well as inferior tab and right inferior pole. Cloudy seroma ~ 20 ml as well. ESTIMATED BLOOD LOSS: 2 ml DESCRIPTION OF OPERATION: The patient was identified and the procedure verified. The patient is placed in a supine position. Area prepped and draped and anesthetized with 9 ml of 1% lidocaine with 1:100,000 epinephrine. An ellipse of skin was removed over previous incision and thin attenuated skin.Saline removed from mink farmer with suction and mink farmer was removed without difficulty. Wound was copiously irrigated with antibiotic irrigation. #10 ANALIA drain placed. Tissue advanced and closure done utilizing interrupted suture of 4-0 in the subcutaneous tissue and interrupted simple suture of 4-0 nylon in the skin. Bacitracin applied to incision line and bulky dressing placed. The patient is tolerated procedure. Impression: nearly 3 mo s/p removal of ruptured silicone implants; Immediate bilateral breast reconstruction with placement of pre-pectoral tissue mink farmer and acellular dermal matrix (ADM), bilateral complete capsulectomies- recurrent seroma noted today and aspirated with thinning of incision Plan: - Right mink farmer removed today. Discussed with radiation oncologist Dr. Shepherd. - Additional cultures obtained today-will keep Bactrim for another week at this time. -Empty and record ANALIA drain. Hold off showering at this time. -Tylenol/Motrin for pain. -Restrict activities x 4 weeks. -RTC one week -Photos taken. Taylor Ramos PA-C documented in this encounter Nursing Notes * Lynda Emmanuel, RN - 12/26/2024 3:11 PM EST Temperature of 70F - 75F in room 40% within normal limits. Humidity of 20% - 60% recorded at 69.5, within normal limits, discussed with TAYLOR RAMOS. The provider has made a clinical evaluation to proceed with the procedure. All sterile instruments and supplies being used for the procedures have been visually inspected for any signs of being compromised, including but not limited to,water stains on wrap and instruments, condensation on wrap or instruments, and torn or damaged packaging. documented in this encounter Miscellaneous Notes * Addendum Note - Gabe Gee TECH - 12/26/2024 4:58 PM ESTAddended by: GABE GEE on: 12/26/2024 04:58 PM Modules accepted: Orders documented in this encounter Plan of Treatment Upcoming Encounters Date Type Department Care Team (Late st Contact Info) Description 12/27/2024 8:40 AM EST Laboratory Laboratory [facility] [place] [address] [facility] [place] [phone] Mily, Lab [facility] [address] [facility] [place] [address] 12/27/2024 9:00 AM EST Immunization/Injecti on Hematology/Oncology Treatment, [place] [address] [place] [phone] Mily, Chair 6 Hem Onc [address] [place] [address] 01/03/2025 11:30 AM EST Office Visit Plastic Surgery, [place] [address] [place] [address] Taylor Ramos PA-C [address] [place] [address] 01/16/2025 1:00 PM EST Office Visit General Surgery, [facility] [address] [facility] [place] [address] Tara Curran MD [address] [facility] [place] [address] 01/29/2025 10:30 AM EDT Office Visit Hematology/Oncology [facility] [place] [address] [place] [phone] Jostin Barnes MD [address] [place] [address] 02/05/2025 9:00 AM EDT Imaging Radiology [facility] [address] [facility] [place] [phone] 02/21/2025 11:45 AM EDT Office Visit Urology, [facility] [address] [facility] [place] [address] Jeff Vazquez MD [address] [place] [address] 02/26/2025 9:40 AM EDT Office Visit Family Practice [facility] [place] [address] Chela Amaya DO [address] [place] [address] 08/24/2025 10:00 AM EDT Office Visit Dermatology, [place] [address] [place] [address] Merary Omalley PA-C [address] [place] [address] Pending Results Name Type Priority Associated Diagnoses Date /Time CULTURE, WOUND, DEEP, AEROBIC AND ANAEROBIC Lab Routine Malignant neoplasm of right breast in female, estrogen receptor positive, unspecified site of breast (HCC) 12/26/2024 3:19 PM EST Health Maintenance Due Date Last Done Comments [...] this encounter Medical Devices Implanted Type Area Bandsaw Operator Device Identifier Shelf Expiration Date Model / Serial / Lot Planer Feeder Artoura Plus 500cc - [id number] - [id number] Implanted:Qty: 1 on 10/03/2024 [place] Trae [place] [facility] [place]: Breast MENTOR ALBERTO 06/01/2028 [id number] / [id number] / [id number] Implant Cortiva Allograft Dermis 16cm X 20cm - [id number] - [id number] Implanted:Qty: 1 on 10/03/2024 by Trae Mark [place] [facility] [place]: Breast RTI SURGICAL 01/31/2026 [id number] / [id number] / [id number] Planer Feeder Artoura Plus 500cc - [id number] - [id number] Implanted:Qty: 1 on 10/03/2024 by Trae Mark [place] [facility] [place]: Breast MENTOR ALBERTO 07/23/2028 [id number] / [id number] / [id number] Implant Cortiva Allograft Dermis 16cm X 20cm - [id number] - [id number] Implanted:Qty: 1 on 10/03/2024 by Trae Mark MD [place] [facility] [place]: Breast RTI SURGICAL 12/07/2025 [id number] / [id number] / [id number] documented as of this encounter Procedures Procedure Name Priority Date/Time Associated Diagnosis Comments CULTURE, WOUND, DEEP, AEROBIC AND ANAEROBIC Routine 12/26/2024 3:19 PM EST Malignant neoplasm of right breast in female, estrogen receptor positive, unspecified site of breast (HCC) documented in this encounter Visit Diagnoses Diagnosis Malignant neoplasm of right breast in female, estrogen receptor positive, unspecified site of breast (HCC)- Primary Seroma of breast documented in this encounter Administered Medications Inactive Administered Medications - up to 3 most recent administrations Medication Order MAR Action Action Date Dose Rate Site ceFAZolin (Ancef) 3 g, Gentamicin 240 mg in sodium chloride IR 0.9 % 3,000 mL irrigation Irrigation, FOR IRRIGATION ONLY , ONCE, 1 dose, On Wed12/26/24 at 1415Indications:Malignant neoplasm of right breast in female, estrogen receptor positive, unspecified site of breast (HCC) Given 12/26/2024 3:10 PM EST documented in this encounter Advance Directives * [...] Advance Directives occurred with: Patient Care Teams Nurse Esthetician Relationship Specialty Start Date End Date Chela Amaya DO [address] [place] [address] PCP - General Family Medicine 03/15/23 documented as of this encounter
--- OUTSIDE RECORDS SUMMARY | 2025-01-24 00:36 | External Medical Summary | Summary of Care ---
Author Name Unknown Organization [facility] [address] [place] [address] Phone [phone] Care Team Providers Care Coiled Tubing Operator Name Role Phone Chela Amaya DO Primary Care Provider [phone] Encounter Details Date Type Department Care Team (Late st Contact Info) Description 12/24/2024 Orders Only Hematology/Oncology, [facility] [address] [place] [address] Jostin Barnes MD [address] [place] [address] Allergies No known active allergiesdocumented as of this encounter (statuses as of 12/24/2024) Medications Polyethylene Glycol 3350 17 GM/SCOOP Oral [...] as of this encounter (statuses as of 12/24/2024) Active Problems Problem Noted Date Diagnosed Date [...] as of this encounter (statuses as of 12/24/2024) Resolved Problems Problem Noted Date Diagnosed Date Resolved Date with hydronephrosis 06/07/2017 08/30/2017 Overview (06/07/2017): Right No stone noted on right but distal sone not excluded Urology recommending nephrology at [facility], pt declines appt Tylenol #3 for pain [...] as of this encounter (statuses as of 12/24/2024) Immunizations Name Administration Dates Next Due PPD [...] No 02/21/2024 Does the household have a [facility] source of income? 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 [address] [facility] [place] [address] 12/27/2024 9:00 AM EST Immunization/Injecti on Hematology/Oncology Treatment, [place] [address] [place] [address] Mily, Chair [address] [facility] 200 [place] [address] 01/16/2025 1:00 PM EST Office Visit General Surgery, [facility] [address] [facility] [place] [address] Tara Curran MD 132 [facility] [place] [address] 01/29/2025 10:30 AM EDT Office Visit Hematology/Oncology [facility] [place] [address] [place] [phone] Jostin Barnes MD [address] [place] [address] 02/05/2025 9:00 AM EDT Imaging Radiology [facility] [address] [place] [phone] 02/21/2025 11:45 AM EDT Office Visit Urology, [facility] [address] [place] [address] Jeff Vazquez MD [address] [place] [address] 02/26/2025 9:40 AM EDT Office Visit Family Practice [facility] [address] [place] [address] Chela Amaya DO [address] [place] [address] 08/24/2025 10:00 AM EDT Office Visit Dermatology, [place] Montaño [address] [place] [address] Merary Omalley PA-C 27 [place] [address] Health Maintenance Due Date Last Done Comments [...] this encounter Medical Devices Implanted Type Area Zigzag Machine Operator Device Identifier Shelf Expiration Date Model / Serial / Lot Elder Assistant Artoura Plus 500cc - [id number] - [id number] Implanted:Qty: 1 on 10/03/2024 by Trae Mark MD at OR [facility] Right: Breast MENTOR ALBERTO 06/01/2028 [id number] / [id number] / [id number] Implant Cortiva Allograft Dermis 16cm X 20cm - [id number] - [id number] Implanted:Qty: 1 on 10/03/2024 by Trae Mark MD at OR [facility] Right: Breast RTI SURGICAL 01/31/2026 [id number] / [id number] / [id number] Elder Assistant Artoura Plus 500cc - [id number] - [id number] Implanted:Qty: 1 on 10/03/2024 by Trae Mark MD at OR [facility] Left: Breast MENTOR ALBERTO 07/23/2028 [id number] / [id number] / [id number] Implant Cortiva Allograft Dermis 16cm X 20cm - [id number] - [id number] Implanted:Qty: 1 on 10/03/2024 by Trae Mark MD at [facility] Left: Breast RTI SURGICAL 12/07/2025 [id number] / [id number] / [id number] documented as of this encounter Advance Directives [...] Advance Directives occurred with: Patient Care Teams Coiled Tubing Operator Relationship Specialty Start Date End Date Chela Amaya DO [address] [place] [address] PCP - General Family Medicine 03/15/23 documented as of this encounter
--- OUTSIDE RECORDS SUMMARY | 2025-01-24 00:36 | External Medical Summary | Summary of Care ---
Author Name Unknown Organization [facility] [address] [place] [address] Phone [phone] Care Team Providers Care Logistics Intern Name Role Phone Chela Amaya DO Primary Care Provider [phone] Encounter Details Date Type Department Care Team (Late st Contact Info) Description 12/24/2024 Orders Only Hematology/Oncology, [facility] [address] [place] [address] Jostin Barnes MD [address] [place] [address] Allergies No known active allergiesdocumented as of [...] sone not excluded Urology recommending neph[place] [facility], pt declines appt Tylenol #3 for pain [...] No 02/21/2024 Does the household have a [facility] source of income? 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 on file Not on file documented as of this encounter Plan of Treatment Upcoming Encounters Date Type Department Care Team (Late st Contact Info) Description 12/26/2024 2:00 PM EST Office Visit Plastic Surgery, [place] [address] [place] [address] Taylor Sanchez PA-C [address] [place] [address] 12/27/2024 8:40 AM EST Laboratory Laboratory [facility] [address] [place] [phone] Mily, Lab [facility] [address] [facility] [place] [address] 12/27/2024 9:00 AM EST Immunization/Injecti on Hematology/Oncology Treatment, [place] [address] [place] [address] Mily, Chair 6 Hem Onc [facility] 200 [facility] [place] [address] 01/16/2025 1:00 PM EST Office Visit General Surgery, Health system 132 [facility] [place] [address] Tara Curran MD 132 [facility] [place] [address] 01/29/2025 10:30 AM EDT Office Visit Hematology/Oncology [facility] [place] [address] [place] [phone] Jostin Barnes MD [address] [place] [address] 02/05/2025 9:00 AM EDT Imaging Radiology [facility] [address] [place] [phone] 02/21/2025 11:45 AM EDT Office Visit Urology, [facility] system [address] [place] [address] Jeff Vazquez MD [address] [place] [address] 02/26/2025 9:40 AM EDT Office Visit Family Practice [facility] [address] [place] [address] Chela Amaya DO 132 [place] [address] 08/24/2025 10:00 AM EDT Office Visit Dermatology, [place] Montaño [address] [place] [address] Merary Omalley PA-C 27 [place] [address] Health Maintenance Due Date Last Done Comments [...] this encounter Medical Devices Implanted Type Area Computer Mechanic Device Identifier Shelf Expiration Date Model / Serial / Lot Optometry Professor Artoura Plus 500cc - [id number] - [id number] Implanted:Qty: 1 on 10/03/2024 by Trae Mark MD at [place] [facility] Right: Breast MENTOR ALBERTO 06/01/2028 [id number] / [id number] / [id number] Implant Cortiva Allograft Dermis 16cm X 20cm - [id number] - [id number] Implanted:Qty: 1 on 10/03/2024 by Trae Mark MD at [place] [facility] Right: Breast RTI SURGICAL 01/31/2026 [id number] / [id number] / [id number] Optometry Professor Artoura Plus 500cc - [id number] - [id number] Implanted:Qty: 1 on 10/03/2024 by Trae Mark MD at [place] [facility] Left: Breast MENTOR ALBERTO 07/23/2028 [id number] / [id number] / [id number] Implant Cortiva Allograft Dermis 16cm X 20cm - [id number] - [id number] Implanted:Qty: 1 on 10/03/2024 by Trae Mark MD at [facility] Left: Breast RTI SURGICAL 12/07/2025 [id number] / [id number] / [id number] documented as of this encounter Advance Directives [...] Directives occurred with: Patient Care Teams Logistics Intern Relationship Specialty Start Date End Date Chela Amaya DO [address] [place] [address] PCP - General Family Medicine 03/15/23 documented as of this encounter
--- OUTSIDE RECORDS SUMMARY | 2025-01-24 00:36 | External Medical Summary | Summary of Care ---
Author Name Unknown Organization [facility] Address [address] [place] [address] Phone [phone] Care Team Providers Care Medical Staff Director Name Role Phone Chela Amaya DO Primary Care Provider Reason for Visit * Reason Comments Follow Up Encounter Details Date Type Department Care Team (Late st Contact Info) Description 12/22/2024 8:00 AM EST Office Visit Plastic Surgery, [place] [address] [place] [address] Taylor Sancehz PA-C [address] [place] [address] Malignant neoplasm of right breast in female, estrogen receptor positive, unspecified site of breast (HCC)*; Seroma of breast Allergies No known active allergiesdocumented as of this encounter (statuses as of 12/22/2024) Medications Polyethylene Glycol 3350 17 GM/SCOOP Oral [...] 1 12/22/2024 8:42 AM EST 5 Active Sulfamethoxazole- Trimethoprim 800-160 MG Oral Tablet (Bactrim DS) Take 1 Tablet by mouth in the morning and 1 Tablet before bedtime. until gone.. 28 Tablet 1 12/11/2024 4:23 PM EST 5 12/22/19 25 Discontinu ed(Refill) documented as of this encounter (statuses as of 12/22/2024) Active Problems Problem Noted Date Diagnosed Date [...] as of this encounter (statuses as of 12/22/2024) Resolved Problems Problem Noted Date Diagnosed Date Resolved Date with hydronephrosis 06/07/2017 08/30/2017 Overview (06/07/2017): Right No stone noted on right but distal sone not excluded Urology recommending nephrology at [facility], pt declines appt Tylenol #3 for pain [...] as of this encounter (statuses as of 12/22/2024) Immunizations Name Administration Dates Next Due PPD [...] 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 Pt was seen last week for increased redness and thinning of the scar centrally. Seroma was drained at that time, sent for culture and pt was placed on Bactrim DS and cultures positive for Enterobacter. She was seen again later that week and then Wednesday of this week. Fluid was also removed from theexpander. Last seroma was 15 ml which is decreased from previous. Cultures retaken at that time andno growth to date. Pt feels well though notes dark area along central scar worsened. She denies severe pain, fevers, chills. Combined Surgery: Yes - Curran -bilateral skin sparing mastectomies with removal of right sided port a cath and right axillary sentinel lymph node biopsy with injection of lymphazurin blue dye for mapping Shelf Drier Operator Documentation Patient offered refueling ramp attendant and declined. Exam: There were no vitals filed for this visit. 43 year old female in NAD 500 ml tissue production scheduler filled to 300 ml in the OR with air Right breast with ongoing erythema. Scar medially continues to thin and worse today. Tab along inferor pole palpable but no overlying skin irration. Pt has fluid wave noted but smaller Under sterile conditions, the skin was prepped over port site with CHG A 21 gauge needle was inserted just over the port. The syringe was then drawn back and 8 ml (15, 30ml) of seroma was aspirated- cloudy drainage. Pt raeann procedure well. No compression applied today given thinness of incision. Right 400 ml Left 250 ml Impression: 2 1/2 mo s/p removal of ruptured silicone implants; Immediate bilateral breast reconstruction with placement of pre-pectoral tissue production scheduler and acellular dermal matrix (ADM), bilateral complete capsulectomies- recurrent seroma noted today and aspirated with thinning of incision Plan: - Pt with seroma after starting radiation. Aspiration performed again today but little fluid. Cultures from earlier this week NTD. -More concerning is the continued thinning of incision medially and I anticipate it will break downat some point requiring removal of production scheduler. Pt is currently undergoing radiation which is due to completed on 01/18/25. Pt counseled about this and discussed future reconstruction options. - Keep on Bactrim at this time. - Pt to call with drainage, fever/chills, worsening redness, incision opening, fluid re-accumulation. - RTC 12/26/24 for 1 hr appt for recheck and possible removal of production scheduler. - Photos taken. Taylor Sanchez PA-C documented in this encounter Plan of Treatment Upcoming Encounters Date Type Department Care Team (Late st Contact Info) Description 12/26/2024 2:00 PM EST Office Visit Plastic Surgery, [place] [address] [facility] [place] [address] Taylor Sanchez PA-C [address] [facility] [place] [address] 12/27/2024 8:40 AM EST Laboratory Laboratory [facility] [place] Ramos [address] [place] [address] [address] [facility] [place], [place] [address] 12/27/2024 9:00 AM EST Immunization/Injecti on Hematology/Oncology Treatment, [place] [address] [place] [phone] Mily, Chair 6 Hem Onc [place] [address] [place] [address] 01/16/2025 1:00 PM EST Office Visit General Surgery, [facility] [address] [place] [address] Tara Curran MD [address] [place] [address] 01/29/2025 10:30 AM EDT Office Visit Hematology/Oncology [facility] [address] [place] [phone] Jostin Barnes MD [address] [place] [address] 02/05/2025 9:00 AM EDT Imaging Radiology [facility] [address] [place] [phone] 02/21/2025 11:45 AM EDT Office Visit Urology, [facility] [address] [place] [address] Jeff Vazquez MD 27 [place] [address] 02/26/2025 9:40 AM EDT Office Visit Family Practice [facility] [address] [place] [address] Chela Amaya DO [address] [place] [address] 08/24/2025 10:00 AM EDT Office Visit Dermatology, [place] [address] [place] [address] Merary Omalley PA-C 27 [place] [address] Health Maintenance Due Date Last Done Comments [...] 19+ Years) Aged Out No longer eligib based on patient's age to complete this topic documented as of this encounter Medical Devices Implanted Type Area Forest Pathology Professor Device Identifier Shelf Expiration Date Model / Serial / Lot Photovoltaic Power Systems Engineer Artoura Plus 500cc - [id number] - [id number] Implanted:Qty: 1 on 10/03/2024 by Trae Mark MD [place] [facility] Right: Breast MENTOR ALBERTO 06/01/2028 [id number] / [id number] / [id number] Implant Cortiva Allograft Dermis 16cm X 20cm - [id number] - [id number] Implanted:Qty: 1 on 10/03/2024 by Trae Mark MD at [place] [facility] Right: Breast RTI SURGICAL 01/31/2026 [id number] / [id number] / [id number] Photovoltaic Power Systems Engineer Artoura Plus 500cc - [id number] - [id number] Implanted:Qty: 1 on 10/03/2024 by Trae Mark MD at [place] [facility] Left: Breast MENTOR ALBERTO 07/23/2028 [id number] / [id number] / [id number] Implant Cortiva Allograft Dermis 16cm X 20cm - [id number] - [id number] Implanted:Qty: 1 on 10/03/2024 by Trae Mark MD at [place] [facility] Left: Breast RTI SURGICAL 12/07/2025 [id number] / [id number] / [id number] documented as of this encounter Visit Diagnoses Diagnosis Malignant neoplasm of right breast in female, estrogen receptor positive, unspecified site of breast (HCC)- Primary Seroma of breast documented in this encounter Advance Directives * [...] Advance Directives occurred with: Patient Care Teams Medical Staff Director Relationship Specialty Start Date End Date Chela Amaya DO [address] [place] [address] PCP - General Family Medicine 03/15/23 documented as of this encounter
--- OUTSIDE RECORDS SUMMARY | 2025-01-24 00:36 | External Medical Summary | Summary of Care ---
Author Name Unknown Organization [facility] Address [address] [place] [address] Phone [phone] Care Team Providers Care Rehabilitation Liaison Name Role Phone Chela Amaya DO Primary Care Provider [phone] Reason for Visit * Reason Comments Follow Up Encounter Details Date Type Department Care Team (Late st Contact Info) Description 12/26/2024 2:00 PM EST Office Visit Plastic Surgery, [place] [address] [place] [address] Taylor Ramos PA-C [address] [place] [address] Malignant neoplasm of right breast in female, [...] Start Date End Date Status Lidocaine-EPINEPHrine 1 %-1:146139 inj 90 mgIndications:Malignant neoplasm of right breast [...] sone not excluded Urology recommending nephrology at [facility], pt declines appt Tylenol #3 for pain [...] 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 Our daytime office Wednesday - Wednesday: [facility] . Evenings/weekends: [facility] and ask for Plastic Surgery. Please [...] Enterobacter. Fluid was also removed from the beater out leveling machine last week. Last seroma was 8 ml [...] injection of lymphazurin blue dye for mapping Smoke Control Supervisor Documentation Patient offered wood science professor and declined. Exam: Filed Vitals: 12/26/24 1351 BP: 141/71 Pulse: 80 Temp: 35.9 C (96.7 F) TempSrc: Tympanic Weight: 63.5 kg (140 lb) Height: 1.676 m (5' 6") 43 year old female in NAD 500 ml tissue beater out leveling machine filled to 300 ml in the OR with air Left expanded to 250 ml Right breast with ongoing erythema. Scar medially continues to thin and worse today and breakdown is imminent. Tab along inferor pole palpable and now has thinning and irritation. Pt has fluid wave as well. After discussion with pt and Dr. Shepherd (radiation oncologist) decision made to remove right tissue beater out leveling machine under local anesthesia: PROCEDURE NOTE SERVICE: Plastic Surgery DATE: 12/26/2024 PRE-OP DIAGNOSIS: Removal of right tissue beater out leveling machine s/p breast reconstruction POST-OP DIAGNOSIS: Same. SURGEON: Taylor Ramos PA-C ANESTHESIA: Local OPERATION: Removal of right tissue beater out leveling machine, irrigation and intermediate closure. FINDINGS: Very thin [...] incision and thin attenuated skin.Saline removed from beater out leveling machine with suction and beater out leveling machine was removed without difficulty. Wound was copiously [...] breast reconstruction with placement of pre-pectoral tissue beater out leveling machine and acellular dermal matrix (ADM), bilateral complete capsulectomies- recurrent seroma noted today and aspirated with thinning of incision Plan: - Right beater out leveling machine removed today. Discussed with radiation oncologist Dr. [...] Description 12/27/2024 8:40 AM EST Laboratory Laboratory [facility] [place] 200 [facility] [place] [phone] Mily, Lab [facility] [address] [facility] [place] [address] 12/27/2024 9:00 AM EST Immunization/Injecti on Hematology/Oncology Treatment, [place] [address] [place] [phone] Mily, Chair 6 Hem Onc Scen[address] [place] [address] 01/03/2025 11:30 AM EST Office Visit Plastic Surgery, [place] [address] [place] [address] Taylor Ramos PA-C [address] [place] [address] 01/16/2025 1:00 PM EST Office Visit General Surgery, [facility] 132 [facility] [place] [address] Tara Curran MD 132 [facility] [place] [address] 01/29/2025 10:30 AM EDT Office Visit Hematology/Oncology [facility] [place] [address] [place] [phone] Jostin Barnes MD [address] [place] [address] 02/05/2025 9:00 AM EDT Imaging Radiology [facility] 132 [facility] [place] [phone] 02/21/2025 11:45 AM EDT Office Visit Urology, [facility] 132 [facility] [place] [address] Jeff Vazquez MD 27 [place] [address] 02/26/2025 9:40 AM EDT Office Visit Family Practice [facility] [place] [address] Chela Amaya DO [address] [place] [address] 08/24/2025 10:00 AM EDT Office Visit Dermatology, [place] [address] [place] [address] Merary Omalley PA-C [address] [place] [address] Pending Results Name Type Priority Associated Diagnoses [...] this encounter Medical Devices Implanted Type Area Weighter Device Identifier Shelf Expiration Date Model / Serial / Lot Derrick Engineer Artoura Plus 500cc - [id number] - [id number] Implanted:Qty: 1 on 10/03/2024 by Trae Mark MD at OR [facility] Right: Breast MENTOR ALBERTO 06/01/2028 [id number] / [id number] / [id number] Implant Cortiva Allograft Dermis 16cm X 20cm - [id number] - [id number] Implanted:Qty: 1 on 10/03/2024 by Trae Mark MD at OR [facility] Right: Breast RTI SURGICAL 01/31/2026 [id number] / [id number] / [id number] Derrick Engineer Artoura Plus 500cc - [id number] - [id number] Implanted:Qty: 1 on 10/03/2024 by Trae Mark MD at OR [facility] Left: Breast MENTOR ALBERTO 07/23/2028 [id number] / [id number] / [id number] Implant Cortiva Allograft Dermis 16cm X 20cm - [id number] - [id number] Implanted:Qty: 1 on 10/03/2024 by Trae Mark MD at OR [facility] Left: Breast RTI SURGICAL 12/07/2025 [id number] / [id number] / [id number] documented as of this encounter Procedures Procedure [...] Advance Directives occurred with: Patient Care Teams Rehabilitation Liaison Relationship Specialty Start Date End Date Chela Amaya DO [address] [place] [address] PCP - General Family Medicine 03/15/23 documented as of this encounter
--- OUTSIDE RECORDS SUMMARY | 2025-01-24 00:36 | External Medical Summary ---
Author Name Unknown Address Unknown Organization K01:LABORATORY [facility] - [address] [facility] [address] Laboratory Report Ordering Provider Test Date Status AYDEN ZAVALA 12/19/2024 13:40:36 Final No aerobic growth. Observation Date Value Abnormality Reference (Units ) Status Bacteria identified in Specimen by Culture 12/19/2024 13:40:36 [id number]^CUTIB ACTERIUM ACNES Abnormal Final One colony Cutibacterium acn es
This result may not be clinically significant and should be interpreted in the context of the microbe detected. Gram Stain 12/19/2024 13:40:36 Occasional Polymorphonuclear leukocytes Final Gram Stain 12/19/2024 13:40:36 No squamous epithelial cells seen Final Gram Stain 12/19/2024 13:40:36 No organisms seen Final Test: Culture, Wound, Deep, Aerobic and Anaerobic
Specimen Source: Breast, Right
Specimen Type: Aspirate
Specimen Date: 12/19/2024 1340
Result Date: 12/24/2024 1429
Result Status: Final result
Abnormal: Yes
Resulting Lab: LABORATORY [facility]
[address]
[facility] [address]

CULTURE

One colony Cutibacterium acnes (Abnormal)

This result may not be clinically significant and should be interpreted in
the context of the microbe detected.

No aerobic growth.

STAIN

Occasional Polymorphonuclear leukocytes

No squamous epithelial cells seen

No organisms seen

null Performing Location LABORATORY [facility] - [address] [place] [address]
--- OUTSIDE RECORDS SUMMARY | 2025-01-24 00:36 | External Medical Summary | Summary of Care ---
Author Name Unknown Organization [facility] Address [address] [place] [address] Phone [phone] Care Team Providers Care Shoe Stock Associate Name Role Phone Chela Amaya DO Primary Care Provider [phone] Reason for Visit * Reason Comments Follow Up Encounter Details Date Type Department Care Team (Late st Contact Info) Description 12/14/2024 3:00 PM EST Office Visit Plastic Surgery, [place] [address] [place], [place] [phone] Taylor Aranda PA-C [address], [place] [phone] Malignant neoplasm of right breast in female, estrogen receptor positive, unspecified site of breast (HCC)*; Seroma of breast Allergies No known active allergiesdocumented as of this encounter (statuses as of 12/15/2024) Medications Polyethylene Glycol 3350 17 GM/SCOOP Oral [...] Tablet 1 12/11/2024 4:23 PM EST 5 Active traMADol HCl 50 MG Oral Tablet (Ultram) Take 1 Tablet by mouth every 6 hours as needed for severe Pain 12 Tablet 10/03/2024 5:26 PM EST 4 12/15/19 25 Discontinu ed(Medicat ion List Clean Up) documented as of this encounter (statuses as of 12/15/2024) Active Problems Problem Noted Date Diagnosed Date [...] as of this encounter (statuses as of 12/15/2024) Resolved Problems Problem Noted Date Diagnosed Date [...] as of this encounter (statuses as of 12/15/2024) Immunizations Name Administration Dates Next Due PPD [...] ages 0-17 years) Not on file 02/21/2024 Comments No Sex and Gender Information Value Date Recorded Sex Assigned at Female 02/21/2024 3:50 PM EDT Legal Sex Female 6:03 AM EST Gender Identity Female 02/21/2024 3:50 PM EDT Sexual Orientation Straight 02/21/2024 3: 50 PM EDT 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 Not on file Not on file Not on file documented as of this encounter Last Filed Vital Signs Vital Sign Reading Time Taken Comments Blood Pressure 141/79 12/14/2024 2:44 PM EST Pulse 77 12/14/2024 2:44 PM EST Temperature 36.2 C (97.1 F) 12/14/2024 2:44 PM ES T Respiratory Rate - - Oxygen Saturation - - Inhaled Oxygen Concentration - - Weight 64.4 kg (142 lb) 12/14/2024 2:44 PM EST Height 167.6 cm (5' 6") 12/14/2024 2:44 PM EST Body Mass Index 22.92 12/14/2024 2:44 PM EST documented in this encounter Progress Notes * Taylor Aranda PA-C - 12/14/2024 3:00 PM EST Plastic Surgery Clinic Follow-up Note [...] 11/22/24 and started radiation on 12/05/24. Pt had some irritation of the tab under her breast which improved with stopping bra. Pt was seen earlier this week for increased redness and darkness of the scar centrally. Seroma was drained at that time, sent for culture and pt was placed on Bactrim DS. Pt feels well and notes redness slightly improved. She denies severe pain, fevers, chills. Combined Surgery: Yes - Curran -bilateral skin sparing mastectomies with removal of right sided port a cath and right axillary sentinel lymph node biopsy with injection of lymphazurin blue dye for mapping Cushion Sewer Documentation Patient offered explosive expert and declined. Exam: There were no vitals filed for this visit. 43 year old female in [facility] 500 ml tissue shop clerk filled to 300 ml in the OR with air Right breast with erythema- appears slightly better than Wednesday and has not crossed markings. Scar medially appears thinned as it did Wednesday. No drainage. Tab along inferor pole palpable but no overlying skin irration. Pt has fluid wave noted. Procedure: Under sterile conditions, the skin was prepped over port site with betadine. A 21 gaugeneedle was inserted into the port. The syringe was then drawn back and 100ml of NSS was then removed from the right shop clerk. I then advanced the needle in the subq space just over the port. The syringe was then drawn back and 30 ml of serosang seroma was aspirated. Pt raeann procedure well. ABD pad, bra and one IRASEMA wrap applied to apply some compression. Right 500 ml - 100 ml= 400 ml Left 250 ml CULTURE, WOUND, DEEP, AEROBIC AND ANAEROBIC Status: Preliminary result Culture Growth Three colonies Enterobacter cloacae complex Abnormal This result may not be clinically significant and should be interpreted in the context of the microbe detected. This bacterial species is known to produce an inducible AmpC beta lactamase. Except for the treatment of simple cystitis, recommend avoiding penicillins or cephalosporins other than cefepime. No anaerobic growth. Stain Description Rare Polymorphonuclear leukocytes No squamous epithelial cells seen No organisms seen Impression: 2 1/2 mo s/p removal of ruptured silicone implants; Immediate bilateral breast reconstruction with placement of pre-pectoral tissue shop clerk and acellular dermal matrix (ADM), bilateral complete capsulectomies- recurrent seroma noted today and aspirated. Plan: - Pt with seroma after starting radiation. This was aspirated and sent for culture on Wednesday. Aspiration performed again today. Preliminary culture showed Enterobacter cloacae complex. Will cont Bactrim and monitor sensitivity. - 100 ml of fluid removed from right TE due to thinning of skin, risk of TE exposure. I called Dr Shepherd to inform him as pt currently receiving radiation tx. - Discussed risk of loss of shop clerk due to seroma and radiation. - Pt would like implant reconstruction and Dr Mark did review options for autologous reconstruction with the pt given increased risk with radiation. - Pt to call with drainage, fever/chills, worsening redness or fluid re-accumulation. - RTC 12/19/24 for close observation or sooner if noted. - Photos taken. Pt was discussed and seen with Dr Mark and he agrees with the above. Taylor Aranda PA-C documented in this encounter Plan of Treatment Upcoming Encounters Date Type Department Care Team (Late st Contact Info) Description 12/19/2024 1:00 PM EST Office Visit Plastic Surgery, [place] [address] [place] [address] Taylor Aranda PA-C [address] [place] [address] 12/27/2024 8:40 AM EST Laboratory Laboratory [facility] [place] [address] [place] [phone] [place], Lab Scen[address] [facility] [place] [address] 12/27/2024 9:00 AM EST Immunization/Injecti on Hematology/Oncology Treatment, [place] [address] [place] [phone] Mily, Chair 6 Hem Onc [address] [place] [address] 01/16/2025 1:00 PM EST Office Visit General Surgery, [facility] [address] [facility] [place] [address] Tara Curran MD [address] [place] [address] 01/29/2025 10:30 AM EDT Office Visit Hematology/Oncology [facility] [place] [address] [place] [phone] Jostin Barnes MD [address] [place] [address] 02/05/2025 9:00 AM EDT Imaging Radiology [facility] [address] [place] [phone] 02/21/2025 11:45 AM EDT Office Visit Urology, [facility] [address] [place] [address] Jeff Vazquez MD [address] [place] [address] 02/26/2025 9:40 AM EDT Office Visit Family Practice [facility] [address] [place] [address] Chela Amaya DO [address] [place] [address] 08/24/2025 10:00 AM EDT Office Visit Dermatology, [facility] [address] [place] [address] Merary Omalley PA-C [address] [place] [address] Health Maintenance Due Date Last Done Comments [...] this encounter Medical Devices Implanted Type Area Highway Traffic Control Technician Device Identifier Shelf Expiration Date Model / Serial / Lot Government Program Manager Artoura Plus 500cc - [id number] - [id number] Implanted:Qty: 1 on 10/03/2024 by Trae Mark MD at OR [facility] Right: Breast MENTOR ALBERTO 06/01/2028 [id number] / [id number] / [id number] Implant Cortiva Allograft Dermis 16cm X 20cm - [id number] - [id number] Implanted:Qty: 1 on 10/03/2024 by Trae Mark MD at OR [facility] Right: Breast [employer]I [employer] 01/31/2026 [id number] / [id number] / [id number] Government Program Manager Artoura Plus 500cc - [id number] - [id number] Implanted:Qty: 1 on 10/03/2024 by Trae Mark MD at OR [facility] Left: Breast MENTOR ALBERTO 07/23/2028 [id number] / [id number] / [id number] Implant Cortiva Allograft Dermis 16cm X 20cm - [id number] - [id number] Implanted:Qty: 1 on 10/03/2024 by Trae Mark MD at [facility] Left: Breast [employer]I [employer]GICAL 12/07/2025 [id number] / [id number] / [id number] documented as of this encounter Visit Diagnoses [...] Advance Directives occurred with: Patient Care Teams Shoe Stock Associate Relationship Specialty Start Date End Date Chela Amaya DO [address] [place] [address] PCP - General Family Medicine 03/15/23 documented as of this encounter
--- OUTSIDE RECORDS SUMMARY | 2025-01-24 00:36 | External Medical Summary | Summary of Care ---
Author Name Unknown Organization [facility] Address [address] [place] [address] Phone [phone] Care Team Providers Care Tobacco Dipper Name Role Phone Chela Amaya DO Primary Care Provider [phone] Reason for Visit * Reason Comments Medication Administration Zoladex 3.6mg * Episode Based Medications (Routine) - Authorized Specialty Diagnoses / Procedures Referred By Contac t Referred To Contact Diagnoses Malignant neoplasm of right breast in female, estrogen receptor positive, unspecified site of breast (HCC) Procedures LA GOSERELIN ACETATE IMPLANT Jostin Barnes MD [address] [place] [address] [place] [address] Phone: tel: fax: Hematology/Oncology Treatment, [address] [address] Phone: tel: fax: Referral ID Status Reason Start Date Expiration Date V isits Requested Visits Authorized [id number] Authorized 10/30/2024 11/14/2099 [id number] Encounter Details Date Type Department Care Team (Late st Contact Info) Description 11/29/2024 9:00 AM EST Immunization/I njection Hematology/Oncology Treatment, [address] [phone] Mily, Chair [address] [place] [address] Malignant neoplasm of right breast in female, estrogen receptor positive, unspecified site of breast (HCC)* Allergies No known active allergiesdocumented as of this encounter (statuses as of 12/26/2024) Medications Polyethylene Glycol 3350 17 GM/SCOOP Oral [...] 2 11/28/2024 11:57 AM EST 5 Active traMADol HCl 50 MG Oral Tablet (Ultram) Take 1 Tablet by mouth every 6 hours as needed for severe Pain 12 Tablet 10/03/2024 5:26 PM EST 4 12/15/19 25 Discontinu ed(Medicat ion List Clean Up) documented as of this encounter (statuses as of 12/26/2024) Active Problems Problem Noted Date Diagnosed Date [...] as of this encounter (statuses as of 12/26/2024) Resolved Problems Problem Noted Date Diagnosed Date Resolved Date with hydronephrosis 06/07/2017 08/30/2017 Overview (06/07/2017): Right No stone noted on right but distal sone not excluded Urology recommending nephrology at [facility], pt declines appt Tylenol #3 for pain [...] Fisher RN 08/26/17 , normal first 02/21/2013 12/1 Acute URI 02/21/2013 01/07/2018 Acute sinusitis 02/21/2013 [...] as of this encounter (statuses as of 12/26/2024) Immunizations Name Administration Dates Next Due PPD [...] 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 Patient tolerated injection and will return in 4 weeks. documented in this encounter Plan of Treatment Upcoming Encounters Date Type Department Care Team (Late st Contact Info) Description 12/26/2024 2:00 PM EST Office Visit Plastic Surgery, [place] [address] [place] [address] Taylor Sanchez PA-C [address] [place] [address] 12/27/2024 8:40 AM EST Laboratory Laboratory [facility] [place] [address] [place] [phone] Mily Lab Scenery [address] [place], [place] [address] 12/27/2024 9:00 AM EST Immunization/Injecti on Hematology/Oncology Treatment, [place] [address] [place], [place] [phone] [place], Chair [address] Hem Onc [address] [place] [address] 01/16/2025 1:00 PM EST Office Visit General Surgery, [facility] [address] [place] [address] Tara Curran MD [address] [place] [address] 01/29/2025 10:30 AM EDT Office Visit Hematology/Oncology [facility] [address] [place] [phone] Jostin Barnes MD [address] [place] [address] 02/05/2025 9:00 AM EDT Imaging Radiology [facility] [address] [facility] [place] [phone] 02/21/2025 11:45 AM EDT Office Visit Urology, [facility] [address] [facility] [place] [address] Jeff Vazquez MD [address] [place] [address] 02/26/2025 9:40 AM EDT Office Visit Family Practice [facility] [address] [place] [address] Chela Amaya DO [address] [place] [address] 08/24/2025 10:00 AM EDT Office Visit Dermatology, [place] Montaño [address] [place] [address] Merary Omalley PA-C [address] [place] [address] Health Maintenance Due Date Last Done Comments [...] this encounter Medical Devices Implanted Type Area Risk Investigator Device Identifier Shelf Expiration Date Model / Serial / Lot Catering Convention Services Manager Artoura Plus 500cc - [id number] - [id number] Implanted:Qty: 1 on 10/03/2024 by Trae Mark MD at OR [facility] Right: Breast MENTOR ALBERTO 06/01/2028 [id number] / [id number] / [id number] Implant Cortiva Allograft Dermis 16cm X 20cm - [id number] - [id number] Implanted:Qty: 1 on 10/03/2024 by Trae Mark MD at OR [facility] Right: Breast RTI SURGICAL 01/31/2026 [id number] / [id number] / [id number] Catering Convention Services Manager Artoura Plus 500cc - [id number] - [id number] Implanted:Qty: 1 on 10/03/2024 by Trae Mark MD at OR [facility] Left: Breast MENTOR ALBERTO 07/23/2028 [id number] / [id number] / [id number] Implant Cortiva Allograft Dermis 16cm X 20cm - [id number] - [id number] Implanted:Qty: 1 on 10/03/2024 by Trae Mark MD at OR [facility] Left: Breast RTI SURGICAL 12/07/2025 [id number] / [id number] / [id number] documented as of this encounter Visit Diagnoses Diagnosis Malignant neoplasm of right breast in female, estrogen receptor positive, unspecified site of breast (HCC)- Primary documented in this encounter Administered Medications Inactive Administered Medications - up to 3 most recent administrations Medication Order MAR Action Action Date Dose Rate Site Goserelin Acetate (Zoladex) inj 3.6 mg 3.6 mg, Subcutaneous, ONCE, On Wed11/29/24 at 0945, For 1 dose, Administer implant by inserting needle at a 30- to 45-degree angle into the anterior abdominal wall below the navel line.Indications:Maligna nt neoplasm of right breast in female, estrogen receptor positive, unspecified site of breast (HCC) Given 11/29/2024 8:35 AM EST 3.6 mg Abdomen Left Upper documented in this encounter Advance Directives [...] Advance Directives occurred with: Patient Care Teams Tobacco Dipper Relationship Specialty Start Date End Date Chela Amaya DO [address] [place] [address] PCP - General Family Medicine 03/15/23 documented as of this encounter
--- OUTSIDE RECORDS SUMMARY | 2025-01-24 00:36 | External Medical Summary ---
Author Name Unknown Address Unknown Organization K01:LABORATORY [facility] - [address] [place] [address] Laboratory Report Ordering Provider Test Date Status RICHARD ZAVALA 12/26/2024 15:19:00 Final Observation Date Value Abnormality Reference (Units) Status Bacteria identified in Specimen by Culture 12/26/2024 15:19:00 No aerobic or anaerobic growth Final Gram Stain 12/26/2024 15:19:00 Rare Polymorphonuclear leukocytes Final Gram Stain 12/26/2024 15:19:00 No squamous epithelial cells seen Final Gram Stain 12/26/2024 15:19:00 No organisms seen Final Test: Culture, Wound, Deep, Aerobic and Anaerobic
Specimen Source: Breast, Right
Specimen Type: Deep Wound
Specimen Date: 12/26/2024 1519
Result Date: 12/31/2024 1123
Result Status: Final result
Resulting Lab: LABORATORY [facility]
[address]
[place] [address]

CULTURE

No aerobic or anaerobic growth

STAIN

Rare Polymorphonuclear leukocytes

No squamous epithelial cells seen

No organisms seen

null Performing Location LABORATORY [facility] - [address] [place] [address]
--- OUTSIDE RECORDS SUMMARY | 2025-01-24 00:36 | External Medical Summary | Summary of Care ---
Author Name Unknown Organization [facility] Address [address] [place] [address] Phone [phone] Care Team Providers Care Supervisor Production Managing Name Role Phone Chela Amaya DO Primary Care Provider [phone] Reason for Visit * Reason Comments Follow Up Encounter Details Date Type Department Care Team (Late st Contact Info) Description 12/19/2024 1:00 PM EST Office Visit Plastic Surgery, [place] [address], [place] [id number] Taylor Aranda PA-C [address], [place] [id number] Seroma of breast* Allergies No known active allergiesdocumented as of this encounter (statuses as of 12/21/2024) Medications Polyethylene Glycol 3350 17 GM/SCOOP Oral [...] 1 12/11/2024 4:23 PM EST 5 Active documented as of this encounter (statuses as of 12/21/2024) Active Problems Problem Noted Date Diagnosed Date [...] as of this encounter (statuses as of 12/21/2024) Resolved Problems Problem Noted Date Diagnosed Date Resolved Date with hydronephrosis 06/07/2017 08/30/2017 Overview (06/07/2017): Right No stone noted on right but distal sone not excluded Urology recommending [place] [facility], pt declines appt Tylenol #3 for pain [...] as of this encounter (statuses as of 12/21/2024) Immunizations Name Administration Dates Next Due PPD [...] No 02/21/2024 Does the household have a unm children's hospitallar source of income? 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 Seroma was drained at that time, sent for culture and pt was placed on Bactrim DS. She was seen again on and seroma was drained again. Pt feels well and notes redness slightly improved. She denies severe pain, fevers, chills. Combined Surgery: Yes - Curran -bilateral skin sparing mastectomies with removal of right sided port a cath and right axillary sentinel lymph node biopsy with injection of lymphazurin blue dye for mapping Experienced Truck Driver Documentation Patient offered industrial robotics mechanic and declined. Exam: There were no vitals filed for this visit. 43 year old female in NAD 500 ml tissue data warehouse manager filled to 300 ml in the OR with air Right breast with erythema- appears slightly better than last week, receeding. Scar medially appears thinned as it did last week, stable. No drainage. Tab along inferor pole palpable but no overlyingskin irration. Pt has fluid wave noted. Under sterile conditions, the skin was prepped over port site with betadine. A 21 gauge needle was inserted just over the port. The syringe was then drawn back and 15 ml (30 ml) of seroma was aspirated- chairman ceo in color. Pt raeann procedure well. ABD pad, bra and one IRASEMA wrap applied to apply some compression. Right 400 ml Left 250 ml Impression: 2 1/2 mo s/p removal of ruptured silicone implants; Immediate bilateral breast reconstruction with placement of pre-pectoral tissue data warehouse manager and acellular dermal matrix (ADM), bilateral complete capsulectomies- recurrent seroma noted today and aspirated. Plan: - Pt with seroma after starting radiation. This was aspirated and sent for culture last Wednesday. Preliminary culture showed Enterobacter cloacae complex- sensitivities still pending. Aspiration performed again today, fluid chairman ceo in color and was less. Will cont Bactrim and monitor sensitivity. - 100 ml of fluid removed from right TE last week due to thinning of skin, risk of TE exposure. I called Dr Shepherd to inform him as pt currently receiving radiation tx and they were able to do accommodations for pt's tx. - Pt to call with drainage, fever/chills, worsening redness or fluid re-accumulation. - RTC 12/21/24 for close observation or sooner if noted. - Photos taken. Pt was discussed with Dr Mark and he agrees with the above. Taylor Aranda PA-C documented in this encounter Plan of Treatment Upcoming Encounters Date Type Department Care Team (Late st Contact Info) Description 12/22/2024 8:00 AM EST Office Visit Plastic Surgery, [place] [address] [place] [address] Taylor Sanchez PA-C [facility] [place] [address] 12/27/2024 8:40 AM EST Laboratory Laboratory [facility] [place] [address] [place] [phone] [place], Lab [facility] [address] [facility] [place] [address] 12/27/2024 9:00 AM EST Immunization/Injecti on Hematology/Oncology Treatment, [place] [address] [facility] [place] [address] Mily, Chair 6 Hem Onc [address] [place] [address] 01/16/2025 1:00 PM EST Office Visit General Surgery, [facility] [address] [place] [address] Tara Curran MD [address] [place] [address] 01/29/2025 10:30 AM EDT Office Visit Hematology/Oncology [facility] [address] [facility] [place] [id number] Jostin Barnes MD [address] [facility] [place] [address] 02/05/2025 9:00 AM EDT Imaging Radiology [facility] [address] [place] [id number] 02/21/2025 11:45 AM EDT Office Visit Urology, [facility] [address] [place] [address] Jeff Vazquez MD [address] [place] [address] 02/26/2025 9:40 AM EDT Office Visit Family Practice [facility] [address] [place] [address] Chela Amaya DO [address] [place] [address] 08/24/2025 10:00 AM EDT Office Visit Dermatology, [place] Montaño [address] [facility] [address] [place] [address] Merary Omalley, PASalinaC [address] [place] [address] Pending Results Name Type Priority Associated Diagnoses Date /Time CULTURE, WOUND, DEEP, AEROBIC AND ANAEROBIC Lab Routine Seroma of breast 12/19/2024 1:40 PM EST Health Maintenance Due Date Last [...] this encounter Medical Devices Implanted Type Area Supervisor Shuttle Preparation Device Identifier Shelf Expiration Date Model / Serial / Lot Business Process Specialist Artoura Plus 500cc - [id number] - [id number] Implanted:Qty: 1 on 10/03/2024 by Trae Mark MD at OR [facility] Right: Breast MENTOR ALBERTO 06/01/2028 [id number] / [id number] / [id number] Implant Cortiva Allograft Dermis 16cm X 20cm - [id number] - [id number] Implanted:Qty: 1 on 10/03/2024 by Trae Mark MD at OR [facility] Right: Breast RTI SURGICAL 01/31/2026 [id number] / [id number] / [id number] Business Process Specialist Artoura Plus 500cc - [id number] - [id number] Implanted:Qty: 1 on 10/03/2024 by Tare Mark MD at OR [facility] Left: Breast MENTOR ALBERTO 07/23/2028 [id number] / [id number] / [id number] Implant Cortiva Allograft Dermis 16cm X 20cm - [id number] - [id number] Implanted:Qty: 1 on 10/03/2024 by Trae Mark MD at OR [facility] Left: Breast RTI SURGICAL 12/07/2025 [id number] / [id number] / [id number] documented as of this encounter Procedures Procedure Name Priority Date/Time Associated Diagnosis Comments CULTURE, WOUND, DEEP, AEROBIC AND ANAEROBIC Routine 12/19/2024 1:40 PM EST Seroma of breast documented in this encounter Visit Diagnoses Diagnosis Seroma of breast- Primary documented in this encounter Advance Directives * Full Code (Latest Code Status on File) Date Activated Date Inactivated Comments 10/03/2024 2:54 PM 10/03/2024 10:31 PM This ord er reflects the patients wishes and were consensually [...] Advance Directives occurred with: Patient Care Teams Supervisor Production Managing Relationship Specialty Start Date End Date Chela Amaya DO [address] [place] [id number] PCP - General Family Medicine 03/15/23 documented as of this encounter
--- OUTSIDE RECORDS SUMMARY | 2025-01-24 00:37 | External Medical Summary ---
Author Name Unknown Address Unknown Organization K01:[facility] [address] [facility] [address] Laboratory Report Ordering Provider Test Date Status RICHARD ZAVALA 12/11/2024 15:59:49 Correction No anaerobic growth. Observation Date Value Abnormality Reference (Units ) Status Bacteria identified in Specimen by Culture 12/11/2024 15:59:49 [id number]^ENTEROB ACTER CLOACAE COMPLEX Abnormal Final Three colonies Enterobacter cloacae complex
This result may not be clinically significant and should be interpreted in the context of the microbe detected.
This bacterial species is known to produce an inducible AmpC beta lactamase. Except for the treatment of simple cystitis, recommend avoiding penicillins or cephalosporins other than cefepime. Gram Stain 12/11/2024 15:59:49 Rare Polymorphonuclear leukoc ytes Final Gram Stain 12/11/2024 15:59:49 No squamous epithelial cells seen Final Gram Stain 12/11/2024 15:59:49 No organisms seen Final Performing Location [facility] [facility] [address] [facility] [address] Ordering Provider Test Date Status RICHARD ZAVALA 12/11/2024 15:59:49 Correction Observation Date Value Abnormality Reference (Units ) Status Cefepime susceptibility 12/11/2024 15:59:49 <=1 Susceptible Final cefOXitin [Susceptibility] 12/11/2024 15:59:49 >=64 Resistant Final Ciprofloxacin 12/11/2024 15:59:49 <=0.25 Susceptible Final Gentamicin susceptibility 12/11/2024 15:59:49 <=1 Susceptible Final TMP-SMZ susceptibility 12/11/2024 15:59:49 <=20 Susceptible Final Test: Culture, Wound, Deep, Aerobic and Anaerobic
Specimen Source: Breast, Right
Specimen Type: Deep Wound
Specimen Date: 12/11/2024 1559
Result Date: 12/19/2024 1410
Result Status: Edited Result - FINAL
Abnormal: Yes
Resulting Lab: [facility]
[address]
[place] [address]

CULTURE

Three colonies Enterobacter cloacae complex (Abnormal)

This result may not be clinically significant and should be interpreted in
the context of the microbe detected.
This bacterial species is known to produce an inducible AmpC beta
lactamase. Except for the treatment of simple cystitis, recommend avoiding
penicillins or cephalosporins other than cefepime.

No anaerobic growth.

STAIN

Rare Polymorphonuclear leukocytes

No squamous epithelial cells seen

No organisms seen

SUSCEPTIBILITY

Enterobacter
cloacae complex
METHOD MICROBROTH
DILUTIONS

CEFEPIME <=1 Susceptible
CEFOXITIN >=64 Resistant
CIPROFLOXACIN <=0.25 Susceptible
GENTAMICIN <=1 Susceptible
TRIMETH/SULFAMETHOXAZOLE <=20 Susceptible

null Performing Location [facility] [place] [address] [facility] [address]
[2025-01-24 07:41] VITALS: BP 153/86; PULSE 93; RESP 18; TEMP 98.2; O2SAT 93
[2025-01-24] MEDS: ACETAMINOPHEN 1,000 MG/100 ML VIAL IV PRN (08:06)
[2025-01-24] MEDS: ENOXAPARIN INJ 40 MG/0.4 ML SYR SQ SCH (08:13)
[2025-01-24 08:14] LABS: Basophils # (auto) 0.02 K/uL (0.00-0.20); Basophils % (auto) 0.6 %; Eosinophils # (auto) 0.06 K/uL (0.00-0.50); Eosinophils % (auto) 1.9 %; Hematocrit (blood only) 36.2 % (37.0-47.0); Hemoglobin 12.4 g/dl (12.0-16.0); Immature Granulocytes # (auto) 0.01 K/uL (0.01-0.20); Immature Granulocytes % (auto) 0.3 %; Lymphocytes # (auto) 0.51 K/uL (1.20-3.40); Lymphocytes % (auto) 16.2 %; Mean Corpuscular Hgb Conc 34.3 g/dL (32.0-36.0); Mean Corpuscular Volume 84.6 fL (80.0-100.0); Mean Platelet Volume 9.6 fL (9.4-12.4); Monocytes # (auto) 0.28 K/uL (0.11-0.59); Monocytes % (auto) 8.9 %; Neutrophils # (auto) 2.27 K/uL (1.40-6.50); Neutrophils % (auto) 72.1 %; Platelet Count 166 K/uL (130-400); RDW Coefficient of Variation 12.8 % (11.5-14.5); RDW Standard Deviation 38.4 fL (36.4-46.3); Red Blood Count 4.28 M/uL (4.20-5.40); White Blood Count 3.15 K/ul (4.8-10.8)
[2025-01-24 08:27] LABS: BUN Creatinine Ratio 11.1 (10-20); Calcium 8.9 mg/dl (8.6-10.3); Creatinine Clr Calc Pharmacy 81.2 ml/min; Potassium 3.1 mmol/L (3.5-5.1)
[2025-01-24 08:34] LABS: Estimated Average Glucose 91 mg/dl; Hemoglobin A1C 4.8 % (4.5-5.6)
--- NOTE | 2025-01-24 11:25 | Urology Consultation ---
Date of Consultation January 24, 2025 Assessment & Plan (1) Hydronephrosis with obstructing calculus: (2) Hydroureter, left: (3) Calculus of left ureter: 44-year-old female admitted for left flank pain secondary to obstructing left ureteral calculi. She is afebrile and hemodynamically stable Labs reviewedcreatinine 0.81, no leukocytosis Urinalysis was not suggestive of infection Reviewed and discussed CT with patient Discussed options for stone management including outpatient management with her established urologist is pain is controlled We discussed option for left ureteral stent placement during admission After consideration, she would like to do trial of passage and outpatient management of stones She has reached out to [facility] to move up her follow-up appointment Patient can be discharged to home when medically stable Recommend hydration, tamsulosin, pain management, and strain urine We reviewed return criteria including intractable pain, nausea, fever or chills She will follow-up with her urologist for stone management will sign off, please contact our service with any additional questions or concerns History of Present Illness Reason for Consultation: Left ureteral stone Attending Physician: Christy Willis MD History of Present Illness This is a 44-year-old female with history of nephrolithiasis and breast cancer who presented to the emergency department on 01/23/2025 for evaluation of nausea, vomiting, and left flank pain. On arrival to ED, she was afebrile, hypertensive. Lab work showed WBC 6.14, hemoglobin 14.6, creatinine 0.86. Urinalysis showed 3+ blood, trace LE, 11-20 WBC, >20 RBC, negative for bacteria. Workup included CT abdomen pelvis which demonstrated severe left hydronephrosis, hydroureter secondary to obstructing left distal ureteral calculi measuring 5.3 mm x 19 mm. Additional nonobstructing renal calculi bilaterally. ED course: She was treated with IV fluids, ketorolac, ondansetron and tamsulosin. She was admitted to the hospital medicine service for further management. Urology is consulted for left ureteral stone. Patient seen and examined at bedside this morning. She is awake and sitting up in bed. She reports pain is manageable at this time. She is voiding spontaneously. No fever or chills. No nausea or vomiting at present. She reports she has a history of kidney stones. She follows with Dr. Vazquez at [facility]. She has known stones and was planning to schedule surgery after her cancer treatments. Allergies Allergy/AdvReac Type Severity Reaction Status Date / Time No Known Allergies Allergy Verified 01/23/25 18:23 Home Medications Medication Instructions Recorded Confirmed Type acetaminophen 500 mg tablet 500 - 1,000 mg PO DIRECTED PRN 10/19/24 01/23/25 History (Tylenol Extra Strength) PAIN/FEVER multivitamin 1 tab PO HS 10/19/24 01/23/25 History semaglutide 1 mg/dose (4 mg/3 mL) 1 mg subcut .Q 10 DAYS 10/19/24 01/23/25 History subcutaneous pen injector (Ozempic) turmeric root extract 500 mg 500 mg PO HS 10/19/24 01/23/25 History capsule anastrozole 1 mg tablet 1 mg PO HS 11/16/24 01/23/25 History goserelin 3.6 mg subcutaneous 3.6 mg subcut Q28D 11/16/24 01/23/25 History implant (Zoladex) docusate sodium 100 mg capsule 100 mg PO BID PRN Constipation 01/23/25 01/23/25 History (Colace) ketorolac 10 mg tablet 10 mg PO DIRECTED PRN Pain 01/23/25 01/23/25 History Patient History Medical History PCOS (polycystic ovarian syndrome) Dyslipidemia Melanoma HTN (hypertension) Abnormal Pap smear of cervix Overweight Hydronephrosis Renal calculi Surgical History Status post bilateral mastectomy S/P colonoscopy 02/09/18 History of lithotripsy To left kidney - stent placed and has since been removed S/P LASIK surgery Bilateral H/O breast augmentation 2007 Family History Mother Stomach cancer Hypertension Father Myocardial infarction H/O heart artery stent Pacemaker Hx of CABG Hypertension Cancer of kidney Brother No problems noted. Brother Hypertension Son No problems noted. Son No problems noted. Daughter No problems noted. Family/Other Breast cancer Paternal Aunt x 2 Social History Smoking Status: Never smoker Second Hand Exposure: No; Hx Alcohol Use: No Hx Substance Use: No Preferred Language: [place] Citizen Communication Ability: Effective Visual Impairment: No Limitations Hearing Ability: Normal Jack Machine Operator Required: No Beliefs That Will Affect Care: None marital status: Current Living Situation: Spouse and Family Current Living Situation Comment: kids current occupational status: employed How many Children do You have: 3 Other Information That Helps Us Care for You: No Feels Safe at Home: Yes Safety Concerns: Feels Safe At This Time Diet: regular caffeine: No (2 cups decaf coffee/day) during the past year weight has: decreased > 10 lbs Assistive Devices: None Review of Systems Review of Systems: All systems reviewed & are unremarkable except as noted in HPI & below Physical Exam Constitutional: well developed and well nourished; no acute distress Respiratory: normal respiratory effort; no respiratory distress and no labored breathing Gastrointestinal (Abdomen): Inspection/Auscultation: abdomen normal to inspection Musculoskeletal: Head/Neck/Chest: normocephalic Neurologic: moves all extremities and awake Psychiatric: Orientation: alert and oriented x 3 Results & Data Vital Signs (Past 12 Hours) Vital Signs Temp Pulse Resp BP Pulse Ox O2 Del Method 01/24/25 07:40 36.8 C 93 H 18 153/86 H 93 Room Air 01/23/25 23:46 36.7 C 77 16 174/88 H 97 Room Air PG Care Time/CCT Total # of Minutes Spent Total Time Spent with Patient: Total time spent is greater than 50% in coordination of care (as documented) at patient's floor/unit and/or counseling patient: Coding Level of Care Code 44446 IN/OBS CONSULT LVL 4,60M Diagnoses Hydronephrosis with obstructing calculus N13.2 Hydroureter, left N13.4 Calculus of left ureter N20.1
--- NOTE | 2025-01-24 13:03 | Discharge Summary ---
Discharge Summary Date of Service January 24, 2025 Principal Dx & Hospital Course #1 = Principal Diagnosis (1) Hydronephrosis with obstructing calculus: Ms. Conte is a 44 yo woman with medical history significant for hypertension, urolithiasis, right breast cancer status post surgery/chemotherapy on anastrozole, mood disorder who was admitted for obstructive uropathy secondary to recurrent urolithiasis. Patient was noted to have CT abdomen pelvis which dem onstrated severe left hydronephrosis, hydroureter secondary to obstructing left distal ureteral calculi measuring 5.3 mm x 19 mm. Urine was not concerning for infection. Urology evaluated and initially planned inpatient management; however, it was discussed that patient would like to do a trial of stone passage as an outpatient with plans to follow up with [facility]. She was recommended to continue hydration, tamsulosin, pain management, as well as to strain urine Notes For Next Care Provider Urology follow up for stone management Medication Changes From Visit Tamsulosin 0.4mg qhs Admission HPI Per Admitting Provider History obtained from patient and records. Medical history significant for hypertension, urolithiasis, right breast cancer status post surgery/chemotherapy on anastrozole, mood disorder. 2 days ago, patient noted achy left flank pain complaints going to the groin reminiscent of kidney stone attack. Spontaneous stone passage in the past without need for surgery. No gross hematuria, no fever, no chills. Denies chest pain, SOB. 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 Admission Exam Per Admitting Provider GENERAL: Slightly uncomfortable, pleasant, no respiratory distress SKIN: Normal color, warm HEENT: [place] palpebral conjunctivae, no ptosis, dry buccal mucosa NECK : Supple, no tenderness CHEST : CTA, no tenderness HEART : RRR, no obvious murmurs ABDOMEN: Some distention, hypogastric tenderness EXTREMITIES : No LE swelling/tenderness, palpable pulses, no other conspicuous deformities noted NEUROLOGIC : Coherent, no facial asymmetry, no other gross focality Discharge Exam Constitutional WD/WN, vitals as above Respiratory normal respiratory effort, lungs clear to auscultation Cardiovascular RRR, no murmur, no edema Gastrointestinal (Abdomen) normal bowel sounds, soft, nontender, no hepatosplenomegaly Updated Medication List Medication Instructions Recorded Confirmed Type acetaminophen 500 mg tablet 500 - 1,000 mg PO DIRECTED PRN 10/19/24 01/23/25 History (Tylenol Extra Strength) PAIN/FEVER multivitamin 1 tab PO HS 10/19/24 01/23/25 History semaglutide 1 mg/dose (4 mg/3 mL) 1 mg subcut .Q 10 DAYS 10/19/24 01/23/25 History subcutaneous pen injector (Ozempic) turmeric root extract 500 mg 500 mg PO HS 10/19/24 01/23/25 History capsule anastrozole 1 mg tablet 1 mg PO HS 11/16/24 01/23/25 History goserelin 3.6 mg subcutaneous 3.6 mg subcut Q28D 11/16/24 01/23/25 History implant (Zoladex) docusate sodium 100 mg capsule 100 mg PO BID PRN Constipation 01/23/25 01/23/25 History (Colace) ketorolac 10 mg tablet 10 mg PO DIRECTED PRN Pain 01/23/25 01/23/25 History tamsulosin 0.4 mg capsule 0.4 mg PO HS 30 days #30 caps 01/24/25 Rx Hospital Stay Data Consultations 01/23/25 21:16 ED Decision to Admit Stat 01/23/25 23:46 Consult Urology Routine Diagnostic Imagining Performed 01/23/25 17:39 CT abd pelvis IV con only Stat Pending Results Patient Have Any Pending Studies at Discharge: No Discharge Instructions Given to Patient (Per Discharging Provider) You were admitted for management of stone pain and evaluated by Urology. There initially were plans for removal. Urology recommends you continue home tamsulosin and pain management, as well as to emphasize hydration. Please return to ED if you experience intractable pain, nausea, fever or chills Total Time Total Time Spent Total Time Spent (In Minutes): 45
[2025-01-24] MEDS ORDERED: TAMSULOSIN HCL 0.4 MG CAP PO SCH (21:00)
[2025-01-24] MEDS ORDERED: MULTIVITAMIN TAB PO SCH (21:00)
== END 2025-01-24 14:39 | disposition home or self-care (01) | DRG 694 ==
LOC: ED 17:17 → 3N 22:08